=== PATIENT | female | born 1980 | race Hispanic/Latino ===

== ENCOUNTER 2017-11-19 17:13 | Emergency (ER) | payer SELFPAY ==
[2017-11-19 18:28] LABS: #Basophils 0.1 thou/uL (0.0-0.2); #Eosinphils 0.1 thou/uL (0.0-0.7); #Monocytes 0.7 thou/uL (0.11-0.59); #Neutrophils 6.2 thou/uL (1.40-6.50); %Basophils 0.8 % (0.0-1.0); %Eosinophils 0.9 % (0.0-10.0); %Lymphocytes 21.8 % (21.0-51.0); %Monocytes 7.2 % (0.0-10.0); %Neutrophils 69.2 % (42.0-75.0); Hemoglobin 13.6 g/dL (12.0-16.0); Mean Corpuscular HGB CONC 34.3 g/dL (32.0-36.0); Mean Corpuscular Hemoglobin 27.8 pg (27.0-31.0); Mean Corpuscular Volume 81.1 fl (81.0-99.0); Mean Platelet Volume 7.2 fL (7.4-10.4); Platelet Count 313 thou/uL (130-400); Red Blood Cell (RBC) Count 4.89 mill/uL (4.20-5.40)
[2017-11-19 18:50] LABS: ALT (SGPT) 10 U/L (8-55); AST (SGOT) 11 U/L (5-34); Albumin 4.7 g/dL (3.5-5.0); Alkaline Phosphatase 94 U/L (40-150); Anion Gap 18 mmol/L (10-20); BUN (Urea Nitrogen) 19 mg/dL (7.0-18.7); Bilirubin, Total 0.4 mg/dL (0.2-1.2); Calc. Creatinine Clearance 0 mL/min (70-130); Carbon Dioxide 20 mmol/L (22-29); Chloride 100 mmol/L (98-107); Estimated GFR-MDRD 71; Globulin 3.3 g/dL (2.4-3.5); Glucose 379 mg/dL (70-105); Potassium 3.7 mmol/L (3.5-5.1); Sodium 134 mmol/L (136-145)
== END 2017-11-19 20:57 | disposition home or self-care (01) ==
LOC: ERS 17:13
DX: E11.65 Type 2 diabetes mellitus with hyperglycemia (principal); E11.319 Type 2 diabetes mellitus with unspecified diabetic retinopathy without macular edema; Z79.84 Long term (current) use of oral hypoglycemic drugs; Z79.899 Other long term (current) drug therapy
CPT/HCPCS: 36415; 36416; 80053; 85025; 96360

== ENCOUNTER 2020-09-14 22:29 | Emergency (ER) | payer SELFPAY ==
[2020-09-15] MEDS ORDERED: Bupivacaine 0.25% 10 ML VIAL ONE (00:48)
[2020-09-15] MEDS ORDERED: Bacitracin 1 PK ONE (01:31)
[2020-09-15] MEDS ORDERED: Boostrix 0.5 ML (Tdap) VIAL ONE (02:03)
== END 2020-09-15 02:15 | disposition home or self-care (01) ==
LOC: ERS 22:29
DX: L03.011 Cellulitis of right finger (principal); E11.9 Type 2 diabetes mellitus without complications; Z79.4 Long term (current) use of insulin
CPT/HCPCS: 10060; 90471; 90715; S0020

== ENCOUNTER 2021-08-22 23:18 | Inpatient (IN) | payer SELFPAY ==
[2021-08-22 23:50] LABS: Bilirubin Negative (Negative); Blood, Urine 1+ (Negative); Clarity Clear (Clear); Glucose, Urine (Dipstick) Greater than 1000 mg/dL (Negative); Ketone, Urine Greater than 150 mg/dL (Negative); Leukocyte Negative Leu/uL (Negative); Nitrite Negative (Negative); Protein, Urine (Dipstick) 70 mg/dL (Neg-Trace); RBC/HPF 0-3 HPF (0-3); Specific Gravity, Urine 1.022 (1.002-1.036); Urobilinogen Normal mg/dL (Less than 2); WBC/HPF 0-3 HPF (0-3); pH, Urine 5.5 (5.0-9.0)
[2021-08-22 23:51] LABS: Bacteria/HPF 1+ HPF (None Seen); Pregnancy Test - Urine (BHCG) Negative (Negative); Pregu Control Background? CLEAR/WHITE (CLR/WHITE); Pregu Control Bar Appear? YES (CONTROL BAR); Specific Gravity 1.022 (1.002-1.036)
[2021-08-23 00:11] LABS: Hemoglobin 15.5 g/dL (12.0-16.0); Mean Corpuscular HGB CONC 31.1 g/dL (32.0-36.0); Mean Corpuscular Hemoglobin 26.8 pg (27.0-31.0); Mean Corpuscular Volume 86.3 fL (78.0-98.0); Mean Platelet Volume 8.5 fL (7.4-10.4); Platelet Count 383 thou/uL (130-400); RBC Distribution Width 12.8 % (11.5-14.5); Red Blood Cell (RBC) Count 5.78 mill/uL (4.20-5.40); White Blood Cell (WBC) Count 24.1 thou/uL (4.8-10.8)
[2021-08-23 00:32] LABS: Band 15 % (5-11); Lymphocytes 3 % (21-51); MDiff Complete? YES; Monocytes 3 % (0-10); Neutrophil 79 % (42-75); Platelet Morphology Comment Appears Adequate; RBC Morphology Normal
[2021-08-23 00:35] LABS: ALT (SGPT) 20 U/L (8-55); AST (SGOT) 19 U/L (5-34); Albumin 4.6 g/dL (3.5-5.0); Alkaline Phosphatase 140 U/L (40-110); BUN (Urea Nitrogen) 32 mg/dL (7.0-18.7); Bilirubin, Total 0.9 mg/dL (0.2-1.2); Calc. Creatinine Clearance 0 mL/min (70-130); Calcium 10.2 mg/dL (7.8-10.44); Chloride 94 mmol/L (98-107); Globulin 4.3 g/dL (2.4-3.5); Potassium 4.6 mmol/L (3.5-5.1); Protein, Total 8.9 g/dL (6.0-8.3); Sodium 138 mmol/L (136-145)
[2021-08-23 00:43] LABS: Analyzer IN Cardio ER; Base Excess -21.2 mEq/L (-2.0 to +3.0); Calcium, Ionized (venous) 1.08 mmol/L (1.16-1.32); Chloride (VBG) 97 mmol/L (98-106); Hemoglobin (Hb) 16.4 g/dL (11.7-15.5); Potassium (VBG) 4.51 mmol/L (3.70-5.30); Sodium 140.1 mmol/L (133-146)
[2021-08-23 00:45] LABS: Actual Bicarbonate (HCO3v) 7 mEq/L (22-28)
[2021-08-23 00:50] LABS: Carbon Dioxide Less than 8 mmol/L (22-29); Glucose 720 mg/dL (70-105)
[2021-08-23] MEDS ORDERED: cefTRIAXone\\ROCEPHIN 2 GM VIAL ONE (01:07)
[2021-08-23] MEDS ORDERED: Ondansetron PF 4 MG/2 ML Vial ONE ×2 (01:07→09:20)
[2021-08-23] MEDS ORDERED: INSULIN REGULAR IN 0.9 % NACL 100 UNIT/100 ML BAG ONE ×2 (01:08→01:09)
[2021-08-23] MEDS ORDERED: Pantoprazole 40 MG VIAL ONE ×2 (01:08→09:20)
[2021-08-23] MEDS ORDERED: Sodium Chloride 0.9% 1,000 ML IV PRN ×4 (01:21)
[2021-08-23] MEDS ORDERED: Dextrose 5 %-0.45 % NaCl 1,000 ML IV PRN (01:21)
[2021-08-23] MEDS ORDERED: D5 1/2 NS w/20 mEq KCL 1,000 ML IV PRN (01:21)
[2021-08-23] MEDS ORDERED: NS 0.9% w/ 20 MEQ KCL 1,000 ML IV PRN ×2 (01:21)
[2021-08-23] MEDS ORDERED: Electrolyte Replacement Protocol 1 EACH IVPB ONE (01:21)
[2021-08-23] MEDS ORDERED: HUMULIN R 100 UNITS in Sodium Chloride 0.9% 100 ML IVPB SCH (01:30)
[2021-08-23] MEDS ORDERED: Electrolyte Replacement Protocol FS PRN (01:45)
[2021-08-23 01:48] LABS: Acetaminophen Less than 6.0 mcg/mL (10.0-30.0); Alcohol Less than 10 mg/dL (Less than 10); Salicylate Less than 8.0 mg/dL (15.0-30.0)
[2021-08-23] MEDS ORDERED: Vancomycin 1 GM in Premix Bag 1 BAG IVPB SCH (02:00)
[2021-08-23 02:04] LABS: #Basophils 0.1 thou/uL (0.0-0.2); #Lymphocytes 1.3 thou/uL (1.20-3.40); #Monocytes 2.3 thou/uL (0.11-0.59); #Neutrophils 18.2 thou/uL (1.40-6.50); %Basophils 0.3 % (0.0-1.0); %Eosinophils 0.1 % (0.0-10.0); %Lymphocytes 5.8 % (21.0-51.0); %Monocytes 10.7 % (0.0-10.0); %Neutrophils 83.2 % (42.0-75.0); Hemoglobin 15.5 g/dL (12.0-16.0); Mean Corpuscular HGB CONC 33.1 g/dL (32.0-36.0); Mean Corpuscular Hemoglobin 28.5 pg (27.0-31.0); Mean Corpuscular Volume 86.1 fL (78.0-98.0); Mean Platelet Volume 8.6 fL (7.4-10.4); Platelet Count 310 thou/uL (130-400); RBC Distribution Width 12.8 % (11.5-14.5); Red Blood Cell (RBC) Count 5.45 mill/uL (4.20-5.40); White Blood Cell (WBC) Count 21.9 thou/uL (4.8-10.8)
[2021-08-23 02:25] LABS: Hemoglobin A1c Greater than 14.0 % (4.0-6.0)
[2021-08-23 02:28] LABS: BUN (Urea Nitrogen) 30 mg/dL (7.0-18.7); Calc. Creatinine Clearance 0 mL/min (70-130); Calcium 9.7 mg/dL (7.8-10.44); Chloride 102 mmol/L (98-107); Magnesium 2.3 mg/dL (1.6-2.6); Sodium 142 mmol/L (136-145)
[2021-08-23] MEDS ORDERED: Magnesium 2 GM/50 ML BAG (IN WATER) ONE (02:30)
[2021-08-23] MEDS ORDERED: Milk Of Magnesia 30 ML UDCUP ONE (02:31)
[2021-08-23] MEDS ORDERED: Lidocaine Viscous Sol 2% 15 ml UD Cup ONE (02:31)
[2021-08-23 02:44] LABS: Carbon Dioxide Less than 8 mmol/L (22-29); Glucose 661 mg/dL (70-105)
[2021-08-23] MEDS ORDERED: Acetaminophen 500 MG TAB ONE (03:44)
[2021-08-23 05:16] LABS: Anion Gap 30 mmol/L (10-20); BUN (Urea Nitrogen) 22 mg/dL (7.0-18.7); Calc. Creatinine Clearance 0 mL/min (70-130); Chloride 114 mmol/L (98-107); Glucose 406 mg/dL (70-105); Potassium 4.1 mmol/L (3.5-5.1); Sodium 148 mmol/L (136-145)
[2021-08-23 05:17] LABS: Magnesium 2.9 mg/dL (1.6-2.6)
[2021-08-23 05:46] LABS: Carbon Dioxide 8 mmol/L (22-29)
[2021-08-23] MEDS ORDERED: NS 0.9% w/ 20 MEQ KCL 1,000 ML ONE ×2 (05:48→08:04)
[2021-08-23 08:34] LABS: SARS-CoV-2 NAA Rapid Test Not Detected (NotDetected)
[2021-08-23] MEDS ORDERED: Cefepime 1 GM VIAL ONE (09:20)
[2021-08-23] MEDS: Cefepime 1 GM in Sodium Chloride 0.9% 100 ML IVPB SCH ×2 (09:29→21:23)
[2021-08-23] MEDS: Pantoprazole 40 MG VIAL IVP SCH ×2 (09:29→21:15)
[2021-08-23] MEDS: Ondansetron PF 4 MG/2 ML Vial IVP PRN ×2 (09:29→21:15)
[2021-08-23] MEDS ORDERED: D5 1/2 NS w/20 mEq KCL 1,000 ML ONE (09:49)
[2021-08-23 10:19] LABS: Anion Gap 15 mmol/L (10-20); BUN (Urea Nitrogen) 14 mg/dL (7.0-18.7); Calc. Creatinine Clearance 0 mL/min (70-130); Carbon Dioxide 15 mmol/L (22-29); Glucose 147 mg/dL (70-105); Potassium 4.2 mmol/L (3.5-5.1); Sodium 152 mmol/L (136-145)
[2021-08-23 10:24] LABS: Chloride 126 mmol/L (98-107)
[2021-08-23 12:15] LABS: Hemoglobin 12.8 g/dL (12.0-16.0)
[2021-08-23 12:47] LABS: Anion Gap 16 mmol/L (10-20); BUN (Urea Nitrogen) 13 mg/dL (7.0-18.7); Calc. Creatinine Clearance 0 mL/min (70-130); Carbon Dioxide 15 mmol/L (22-29); Chloride 120 mmol/L (98-107); Glucose 179 mg/dL (70-105); Sodium 147 mmol/L (136-145)
[2021-08-23] MEDS ORDERED: Dextrose 5% in Water 1,000 ML IV SCH (13:00)
[2021-08-23 16:36] VITALS: BMI 21.2
[2021-08-23 18:14] LABS: Anion Gap 18 mmol/L (10-20); BUN (Urea Nitrogen) 9 mg/dL (7.0-18.7); Calc. Creatinine Clearance 67 mL/min (70-130); Calcium 8.2 mg/dL (7.8-10.44); Carbon Dioxide 16 mmol/L (22-29); Chloride 116 mmol/L (98-107); Glucose 212 mg/dL (70-105); Potassium 4.1 mmol/L (3.5-5.1); Sodium 146 mmol/L (136-145)
[2021-08-23] MEDS: Dextrose 5% in Water 1,000 ML IV SCH (19:25)
[2021-08-23 21:01] LABS: Anion Gap 17 mmol/L (10-20); BUN (Urea Nitrogen) 6 mg/dL (7.0-18.7); Calc. Creatinine Clearance 76 mL/min (70-130); Calcium 8.3 mg/dL (7.8-10.44); Carbon Dioxide 17 mmol/L (22-29); Chloride 114 mmol/L (98-107); Glucose 216 mg/dL (70-105); Potassium 3.7 mmol/L (3.5-5.1); Sodium 144 mmol/L (136-145)
[2021-08-24] MEDS ORDERED: Lidocaine 2% Viscous Solution 20 ML, Aluminum & Magnesium Hydroxide 30 ML, Donnatal Eli... SSW SCH (01:15)
[2021-08-24 01:46] LABS: Anion Gap 15 mmol/L (10-20); BUN (Urea Nitrogen) 4 mg/dL (7.0-18.7); Calc. Creatinine Clearance 78 mL/min (70-130); Calcium 8.1 mg/dL (7.8-10.44); Carbon Dioxide 17 mmol/L (22-29); Chloride 110 mmol/L (98-107); Glucose 235 mg/dL (70-105); Potassium 3.2 mmol/L (3.5-5.1); Sodium 139 mmol/L (136-145)
[2021-08-24] MEDS: Potassium Chloride 20 MEQ in Premix Bag 1 BAG IVPB SCH ×2 (03:19→05:22)
[2021-08-24] MEDS: Dextrose 5% in Water 1,000 ML IV SCH (03:29)
[2021-08-24] MEDS: Ondansetron PF 4 MG/2 ML Vial IVP PRN (03:33)
[2021-08-24 03:53] LABS: #Monocytes 0.8 thou/uL (0.11-0.59); #Neutrophils 7.9 thou/uL (1.40-6.50); %Basophils 0.1 % (0.0-1.0); %Eosinophils 0.2 % (0.0-10.0); %Monocytes 8.2 % (0.0-10.0); %Neutrophils 81.5 % (42.0-75.0); Hemoglobin 11.8 g/dL (12.0-16.0); Mean Corpuscular HGB CONC 34.8 g/dL (32.0-36.0); Mean Corpuscular Hemoglobin 28.7 pg (27.0-31.0); Mean Corpuscular Volume 82.7 fL (78.0-98.0); Mean Platelet Volume 7.7 fL (7.4-10.4); Platelet Count 222 thou/uL (130-400); RBC Distribution Width 12.6 % (11.5-14.5); Red Blood Cell (RBC) Count 4.12 mill/uL (4.20-5.40); White Blood Cell (WBC) Count 9.7 thou/uL (4.8-10.8)
[2021-08-24 04:13] LABS: Anion Gap 14 mmol/L (10-20); BUN (Urea Nitrogen) Less than 4 mg/dL (7.0-18.7); Calc. Creatinine Clearance 84 mL/min (70-130); Calcium 8.6 mg/dL (7.8-10.44); Carbon Dioxide 19 mmol/L (22-29); Chloride 111 mmol/L (98-107); Glucose 203 mg/dL (70-105); Magnesium 1.9 mg/dL (1.6-2.6); Potassium 3.4 mmol/L (3.5-5.1); Sodium 141 mmol/L (136-145)
[2021-08-24] MEDS ORDERED: Vancomycin HCl 750 MG in Sodium Chloride 0.9% 250 ML 250 ML IVPB SCH (05:00)
[2021-08-24] MEDS ORDERED: Magnesium 2 GM/50 ML 2 GM in Premix Bag 1 BAG IVPB SCH (07:00)
[2021-08-24] MEDS: Pantoprazole 40 MG VIAL IVP SCH ×2 (08:01→20:54)
[2021-08-24] MEDS ORDERED: Promethazine HCl 12.5 MG in Sodium Chloride 0.9% 50 ML IVPB PRN (08:12)
[2021-08-24] MEDS: Metoclopramide HCl 10 MG/2 ML VIAL IVP SCH ×3 (08:24→21:45)
[2021-08-24] MEDS: guaiFENesin/DM ER PO SCH ×2 (08:25→20:54)
[2021-08-24] MEDS: Cefepime 1 GM in Sodium Chloride 0.9% 100 ML IVPB SCH ×2 (08:25→20:53)
[2021-08-24] MEDS: Dextrose 5 %-0.45 % NaCl 1,000 ML IV SCH ×2 (09:34→21:50)
[2021-08-24] MEDS: Sucralfate 1 GM TAB PO SCH ×3 (12:37→20:54)
[2021-08-24 12:56] LABS: Anion Gap 15 mmol/L (10-20); BUN (Urea Nitrogen) Less than 4 mg/dL (7.0-18.7); Calc. Creatinine Clearance 95 mL/min (70-130); Calcium 8.1 mg/dL (7.8-10.44); Carbon Dioxide 18 mmol/L (22-29); Chloride 108 mmol/L (98-107); Glucose 209 mg/dL (70-105); Potassium 3.5 mmol/L (3.5-5.1); Sodium 137 mmol/L (136-145)
[2021-08-24] MEDS ORDERED: Potassium Chloride 40 MEQ in Sodium Chloride 0.9% 250 ML 250 ML IVPB SCH (15:00)
[2021-08-24 18:29] LABS: Anion Gap 11 mmol/L (10-20); BUN (Urea Nitrogen) Less than 4 mg/dL (7.0-18.7); Calc. Creatinine Clearance 108 mL/min (70-130); Calcium 8.1 mg/dL (7.8-10.44); Carbon Dioxide 22 mmol/L (22-29); Chloride 111 mmol/L (98-107); Glucose 176 mg/dL (70-105); Potassium 3.9 mmol/L (3.5-5.1); Sodium 140 mmol/L (136-145)
[2021-08-25 04:24] LABS: Hemoglobin 11.1 g/dL (12.0-16.0); Mean Corpuscular HGB CONC 34.7 g/dL (32.0-36.0); Mean Corpuscular Hemoglobin 28.7 pg (27.0-31.0); Mean Corpuscular Volume 82.8 fL (78.0-98.0); Mean Platelet Volume 7.7 fL (7.4-10.4); Platelet Count 205 thou/uL (130-400); RBC Distribution Width 12.4 % (11.5-14.5); Red Blood Cell (RBC) Count 3.87 mill/uL (4.20-5.40); White Blood Cell (WBC) Count 9.8 thou/uL (4.8-10.8)
[2021-08-25 04:25] LABS: Band 15 % (5-11); Hypochromia SLIGHT = 6-15 cells (100X) (0-5/hpf); Lymphocytes 13 % (21-51); MDiff Complete? YES; Monocytes 8 % (0-10); Neutrophil 64 % (42-75); Platelet Morphology Comment Appears Adequate; Vancomycin, Trough Less than 1.1 ug/mL
[2021-08-25 04:29] LABS: Anion Gap 12 mmol/L (10-20); BUN (Urea Nitrogen) 4 mg/dL (7.0-18.7); Calc. Creatinine Clearance 120 mL/min (70-130); Calcium 8.1 mg/dL (7.8-10.44); Carbon Dioxide 21 mmol/L (22-29); Chloride 108 mmol/L (98-107); Glucose 197 mg/dL (70-105); Magnesium 1.9 mg/dL (1.6-2.6); Potassium 3.4 mmol/L (3.5-5.1); Sodium 138 mmol/L (136-145)
[2021-08-25] MEDS ORDERED: Vancomycin HCl 1.25 GM in Sodium Chloride 0.9% 250 ML 250 ML IVPB SCH (05:00)
[2021-08-25] MEDS: Metoclopramide HCl 10 MG/2 ML VIAL IVP SCH ×3 (06:11→20:57)
[2021-08-25] MEDS ORDERED: Magnesium 2 GM/50 ML 2 GM in Premix Bag 1 BAG IVPB SCH (06:15)
[2021-08-25] MEDS: Potassium Chloride 20 MEQ in Premix Bag 1 BAG IVPB SCH ×2 (07:06→12:09)
[2021-08-25] MEDS: Pantoprazole 40 MG VIAL IVP SCH ×2 (07:41→20:54)
[2021-08-25] MEDS: guaiFENesin/DM ER PO SCH ×2 (07:41→20:54)
[2021-08-25] MEDS: Sucralfate 1 GM TAB PO SCH ×4 (07:41→20:54)
[2021-08-25] MEDS: Cefepime 1 GM in Sodium Chloride 0.9% 100 ML IVPB SCH (07:41)
[2021-08-25] MEDS: Dextrose 5 %-0.45 % NaCl 1,000 ML IV SCH ×3 (12:09→19:00)
[2021-08-25] MEDS ORDERED: Vancomycin HCl 750 MG in Sodium Chloride 0.9% 250 ML 250 ML IVPB SCH (13:00)
[2021-08-25 14:27] LABS: Potassium 3.7 mmol/L (3.5-5.1)
[2021-08-25] MEDS ORDERED: Dextrose 50% Abboject 50 ML SYRINGE SLOW IVP PRN (18:19)
[2021-08-25] MEDS ORDERED: Dextrose 5% in Water 1,000 ML IV PRN (18:19)
[2021-08-25] MEDS ORDERED: Lantus 1000 UNITS/10 ML VIAL SC SCH (18:45)
[2021-08-26] MEDS: Metoclopramide HCl 10 MG/2 ML VIAL IVP SCH ×3 (06:12→20:10)
[2021-08-26] MEDS: HumaLOG 300 UNITS/3 ML VIAL SC PRN ×3 (06:13→16:20)
[2021-08-26] MEDS: Sucralfate 1 GM TAB PO SCH ×2 (07:40→13:54)
[2021-08-26] MEDS: guaiFENesin/DM ER PO SCH ×2 (07:41→20:11)
[2021-08-26] MEDS: Pantoprazole 40 MG VIAL IVP SCH ×2 (07:41→20:10)
[2021-08-26 08:09] LABS: Anion Gap 15 mmol/L (10-20); BUN (Urea Nitrogen) 5 mg/dL (7.0-18.7); Calc. Creatinine Clearance 110 mL/min (70-130); Calcium 8.4 mg/dL (7.8-10.44); Carbon Dioxide 20 mmol/L (22-29); Chloride 110 mmol/L (98-107); Glucose 182 mg/dL (70-105); Potassium 3.7 mmol/L (3.5-5.1); Sodium 141 mmol/L (136-145)
[2021-08-26] MEDS ORDERED: FLU VACC QS2021-22(6MOS UP)/PF 60 MCG/0.5 ML SYRINGE IM ONE (09:00)
[2021-08-26 09:19] LABS: #Lymphocytes 0.9 thou/uL (1.20-3.40); #Monocytes 0.9 thou/uL (0.11-0.59); #Neutrophils 7.8 thou/uL (1.40-6.50); %Basophils 0.1 % (0.0-1.0); %Eosinophils 0.3 % (0.0-10.0); %Lymphocytes 9.4 % (21.0-51.0); %Monocytes 9.2 % (0.0-10.0); Hemoglobin 10.7 g/dL (12.0-16.0); Mean Corpuscular Hemoglobin 27.5 pg (27.0-31.0); Mean Corpuscular Volume 83.1 fL (78.0-98.0); Mean Platelet Volume 7.7 fL (7.4-10.4); Platelet Count 230 thou/uL (130-400); RBC Distribution Width 12.2 % (11.5-14.5); Red Blood Cell (RBC) Count 3.91 mill/uL (4.20-5.40); White Blood Cell (WBC) Count 9.6 thou/uL (4.8-10.8)
[2021-08-26] MEDS: Lidocaine Viscous Sol 2% 15 ml UD Cup SSW PRN ×2 (09:33→16:19)
[2021-08-26] MEDS: Ciprofloxacin 500 MG TAB PO SCH ×2 (09:33→20:10)
[2021-08-26] MEDS: metroNIDAZOLE 500 MG TAB PO SCH ×3 (09:33→20:10)
[2021-08-26 09:39] LABS: Anion Gap 14 mmol/L (10-20); BUN (Urea Nitrogen) 5 mg/dL (7.0-18.7); Calc. Creatinine Clearance 120 mL/min (70-130); Calcium 8.3 mg/dL (7.8-10.44); Carbon Dioxide 20 mmol/L (22-29); Chloride 109 mmol/L (98-107); Glucose 167 mg/dL (70-105); Potassium 3.9 mmol/L (3.5-5.1); Sodium 139 mmol/L (136-145)
[2021-08-26] MEDS: Nystatin 500,000 UNITS/5 ML UDCUP SSW SCH ×3 (12:39→20:10)
[2021-08-26] MEDS: Sucralfate 1 GM/10 ML UDCUP PO SCH ×3 (12:42→20:10)
[2021-08-26] MEDS ORDERED: Acetaminophen 650 MG/20.3 ML UDCUP PO PRN (16:30)
[2021-08-26] MEDS: Lantus 1000 UNITS/10 ML VIAL SC SCH (20:11)
[2021-08-27] MEDS: Lidocaine Viscous Sol 2% 15 ml UD Cup SSW PRN ×3 (04:18→20:27)
[2021-08-27] MEDS: Metoclopramide HCl 10 MG/2 ML VIAL IVP SCH ×3 (04:18→20:28)
[2021-08-27 07:46] LABS: Anion Gap 19 mmol/L (10-20); BUN (Urea Nitrogen) 6 mg/dL (7.0-18.7); Calc. Creatinine Clearance 99 mL/min (70-130); Calcium 8.6 mg/dL (7.8-10.44); Carbon Dioxide 15 mmol/L (22-29); Chloride 108 mmol/L (98-107); Glucose 187 mg/dL (70-105); Potassium 3.9 mmol/L (3.5-5.1); Sodium 138 mmol/L (136-145)
[2021-08-27] MEDS: metroNIDAZOLE 500 MG TAB PO SCH ×3 (07:56→20:27)
[2021-08-27] MEDS: Sucralfate 1 GM/10 ML UDCUP PO SCH ×4 (07:56→20:27)
[2021-08-27] MEDS: Ciprofloxacin 500 MG TAB PO SCH ×2 (07:56→20:27)
[2021-08-27] MEDS: guaiFENesin/DM ER PO SCH ×2 (07:57→20:39)
[2021-08-27] MEDS: Pantoprazole 40 MG VIAL IVP SCH ×2 (07:57→20:27)
[2021-08-27] MEDS: Nystatin 500,000 UNITS/5 ML UDCUP SSW SCH ×4 (08:18→20:27)
[2021-08-27] MEDS: HumaLOG 300 UNITS/3 ML VIAL SC PRN ×2 (11:38→16:34)
[2021-08-27] MEDS: Lantus 1000 UNITS/10 ML VIAL SC SCH (20:32)
[2021-08-28] MEDS: Metoclopramide HCl 10 MG/2 ML VIAL IVP SCH ×2 (05:50→14:36)
[2021-08-28 07:47] LABS: Anion Gap 18 mmol/L (10-20); BUN (Urea Nitrogen) 6 mg/dL (7.0-18.7); Calc. Creatinine Clearance 108 mL/min (70-130); Calcium 8.8 mg/dL (7.8-10.44); Carbon Dioxide 18 mmol/L (22-29); Chloride 105 mmol/L (98-107); Glucose 205 mg/dL (70-105); Potassium 3.7 mmol/L (3.5-5.1); Sodium 137 mmol/L (136-145)
[2021-08-28] MEDS: metroNIDAZOLE 500 MG TAB PO SCH ×2 (08:06→14:45)
[2021-08-28] MEDS: guaiFENesin/DM ER PO SCH (08:06)
[2021-08-28] MEDS: Nystatin 500,000 UNITS/5 ML UDCUP SSW SCH ×2 (08:06→12:12)
[2021-08-28] MEDS: Ciprofloxacin 500 MG TAB PO SCH (08:06)
[2021-08-28] MEDS: Pantoprazole 40 MG VIAL IVP SCH (08:06)
[2021-08-28] MEDS: Sucralfate 1 GM/10 ML UDCUP PO SCH ×2 (08:06→12:12)
[2021-08-28] MEDS: HumaLOG 300 UNITS/3 ML VIAL SC PRN (12:13)
[2021-08-28 16:24] VITALS: BP 106/75; TEMP 97.5
== END 2021-08-28 16:32 | disposition home or self-care (01) | DRG 637 ==
LOC: ERS 23:18 → ERHOLD 08-23 01:35 → IMCU/EMU 08-23 14:54 → T4-A 08-25 23:31
PROVIDERS: ADMIT Internal Medicine; ATTEND Internal Medicine
DX: E11.10 Type 2 diabetes mellitus with ketoacidosis without coma (principal); G93.41 Metabolic encephalopathy; N17.9 Acute kidney failure, unspecified; K92.0 Hematemesis; I10 Essential (primary) hypertension; D72.829 Elevated white blood cell count, unspecified; Z79.4 Long term (current) use of insulin; Z79.84 Long term (current) use of oral hypoglycemic drugs; Z98.42 Cataract extraction status, left eye; Z98.41 Cataract extraction status, right eye; Z91.14 Patient's other noncompliance with medication regimen
CPT/HCPCS: 36415; 36416; 70450; 71045; 74176; 80048; 80053; 80202; 80307; 81003; 81015; 81025; 82010; 82805; 83036; 83605; 83690; 83735; 84484; 85025; 87040; 93005; 96365; 96366; 96367; 96368; 96375; C9113; J0692; J0696; J1815; J2405; J2765; J3370; J3475; J3480; J3490; J7042; J7050; J7070; U0002

== ENCOUNTER → 2021-11-19 15:40 | Emergency (ER) | payer SELFPAY ==
[2021-11-19 12:16] LABS: Bacteria/HPF 2+ HPF (None Seen); Bilirubin Negative (Negative); Blood, Urine 3+ (Negative); Clarity Clear (Clear); Glucose, Urine (Dipstick) Greater than 1000 mg/dL (Negative); Ketone, Urine 80 mg/dL (Negative); Leukocyte Negative Leu/uL (Negative); Nitrite Negative (Negative); Protein, Urine (Dipstick) 50 mg/dL (Neg-Trace); RBC/HPF 0-3 HPF (0-3); Specific Gravity, Urine 1.045 (1.002-1.036); Urobilinogen Normal mg/dL (Less than 2)
[2021-11-19 12:17] LABS: Pregnancy Test - Urine (BHCG) Negative (Negative); Pregu Control Background? CLEAR/WHITE (CLR/WHITE); Pregu Control Bar Appear? YES (CONTROL BAR); Specific Gravity 1.045 (1.002-1.036)
[2021-11-19 12:48] LABS: #Lymphocytes 1.5 thou/uL (1.20-3.40); #Monocytes 0.6 thou/uL (0.11-0.59); #Neutrophils 4.8 thou/uL (1.40-6.50); %Basophils 0.1 % (0.0-1.0); %Eosinophils 0.3 % (0.0-10.0); %Lymphocytes 21.1 % (21.0-51.0); %Neutrophils 70.5 % (42.0-75.0); Hemoglobin 13.3 g/dL (12.0-16.0); Mean Corpuscular HGB CONC 33.4 g/dL (32.0-36.0); Mean Corpuscular Hemoglobin 27.3 pg (27.0-31.0); Mean Corpuscular Volume 81.8 fL (78.0-98.0); Mean Platelet Volume 7.8 fL (7.4-10.4); Platelet Count 300 thou/uL (130-400); RBC Distribution Width 12.1 % (11.5-14.5); Red Blood Cell (RBC) Count 4.86 mill/uL (4.20-5.40); White Blood Cell (WBC) Count 6.9 thou/uL (4.8-10.8)
[2021-11-19 13:05] LABS: ALT (SGPT) 7 U/L (8-55); AST (SGOT) 10 U/L (5-34); Alkaline Phosphatase 79 U/L (40-110); Anion Gap 14 mmol/L (10-20); BUN (Urea Nitrogen) 7 mg/dL (7.0-18.7); Calc. Creatinine Clearance 0 mL/min (70-130); Calcium 9.4 mg/dL (7.8-10.44); Carbon Dioxide 24 mmol/L (22-29); Chloride 101 mmol/L (98-107); Globulin 3.3 g/dL (2.4-3.5); Glucose 329 mg/dL (70-105); Potassium 4.4 mmol/L (3.5-5.1); Protein, Total 7.3 g/dL (6.0-8.3); Sodium 135 mmol/L (136-145)
[~2021-11-19 15:40] MED LIST: Azithromycin 250 MG TAB ONE; Ketorolac Tromethamine 30 MG/ML VIAL ONE; Lidocaine 1% PF 5 ML VIAL ONE; cefTRIAXone\\ROCEPHIN 1 GM VIAL ONE
== END | disposition home or self-care (01) ==
LOC: ERS 11:48
DX: N12 Tubulo-interstitial nephritis, not specified as acute or chronic (principal); N73.9 Female pelvic inflammatory disease, unspecified; M79.604 Pain in right leg; E11.9 Type 2 diabetes mellitus without complications; Z79.84 Long term (current) use of oral hypoglycemic drugs
CPT/HCPCS: 36415; 76856; 80053; 81003; 81015; 81025; 85025; 87491; 87591; 96372; J0696; J1885

== ENCOUNTER 2023-10-29 13:37 | Inpatient (IN) | payer SELFPAY ==
[2023-10-29] MEDS ORDERED: Ondansetron PF 4 MG/2 ML Vial ONE ×4 (14:00→23:17)
[2023-10-29] MEDS ORDERED: Pantoprazole 40 MG VIAL ONE ×2 (14:07→23:22)
[2023-10-29] MEDS ORDERED: Morphine 4 MG/ML VIAL ONE (14:07)
[2023-10-29 14:08] LABS: #Basophils 0.1 thou/uL (0.0-0.2); #Monocytes 1.4 thou/uL (0.11-0.59); #Neutrophils 15.4 thou/uL (1.40-6.50); %Basophils 0.3 % (0.0-1.0); %Lymphocytes 7.7 % (21.0-51.0); %Monocytes 7.7 % (0.0-10.0); %Neutrophils 83.7 % (42.0-75.0); Hematocrit 39.9 % (36.0-47.0); Hemoglobin 12.9 g/dL (12.0-16.0); Mean Corpuscular HGB CONC 32.3 g/dL (32.0-36.0); Mean Corpuscular Hemoglobin 29.3 pg (27.0-31.0); Mean Corpuscular Volume 90.7 fl (78.0-98.0); Mean Platelet Volume 9.8 fL (7.4-10.4); Platelet Count 431 10x3/uL (130-400); RBC Distribution Width 11.9 % (11.5-14.5); White Blood Cell (WBC) Count 18.4 10x3/uL (4.8-10.8)
[2023-10-29 14:09] LABS: Base Excess -22.6 mEq/L (-2.0 to +3.0); Calcium, Ionized (venous) 1.28 mmol/L (1.16-1.32); Chloride (VBG) 105 mmol/L (98-106); Hematocrit-VBG 41 % (36.0-47.0); Sodium 150 mmol/L (133-146)
[2023-10-29 14:12] LABS: Actual Bicarbonate (HCO3v) 7.1 mEq/L (22-28); pH (venous) 7.022 (7.32-7.43)
[2023-10-29 14:16] LABS: BHCG - Serum Negative (NEGATIVE); Pregs Control Background? CLEAR/WHITE (CLR/WHITE); Pregs Control Bar Appear? YES (CONTROL BAR)
[2023-10-29 14:24] LABS: ALT (SGPT) 16 U/L (8-55); AST (SGOT) 22 U/L (5-34); Albumin 4.7 g/dL (3.5-5.0); Alkaline Phosphatase 167 U/L (40-110); BUN (Urea Nitrogen) 17 mg/dL (7.0-18.7); Bilirubin, Total 0.6 mg/dL (0.2-1.2); Calc. Creatinine Clearance 0 mL/min (70-130); Calcium 9.6 mg/dL (7.8-10.44); Chloride 106 mmol/L (98-107); Estimated GFR 50; Globulin 3.3 g/dL (2.4-3.5); Lipase 19 U/L (8-78); Magnesium 2.2 mg/dL (1.6-2.6); Potassium 4.8 mmol/L (3.5-5.1); Sodium 144 mmol/L (136-145)
[2023-10-29 14:26] LABS: Carbon Dioxide Less than 8 mmol/L (22-29); Glucose 555 mg/dL (70-105)
[2023-10-29 14:28] LABS: Troponin I Less than 0.010 ng/mL (< 0.028)
[2023-10-29] MEDS ORDERED: INSULIN REGULAR IN 0.9 % NACL 100 UNITS/100 ML BAG ONE (14:50)
[2023-10-29 15:14] LABS: Phosphorus 5.7 mg/dL (2.3-4.7)
[2023-10-29 15:14] LABS: SARS-CoV-2 NAA Rapid Test Not Detected (NotDetected)
[2023-10-29] MEDS ORDERED: Azithromycin 500 MG VIAL ONE (15:27)
[2023-10-29] MEDS ORDERED: cefTRIAXone (ROCEPHIN) 2 GM VIAL ONE (15:27)
[2023-10-29] MEDS ORDERED: Sodium Chloride 0.9% 200 ML ONE (15:28)
[2023-10-29] MEDS ORDERED: Dextrose 50% Abboject 50 ML SYRINGE SLOW IVP PRN (16:30)
[2023-10-29] MEDS ORDERED: Dextrose 5 %-0.45 % NaCl 1,000 ML IV PRN (16:30)
[2023-10-29] MEDS ORDERED: NS 0.9% w/ 20 MEQ KCL 1,000 ML IV PRN ×2 (16:30)
[2023-10-29] MEDS ORDERED: Acetaminophen 325 MG TAB PO PRN (16:30)
[2023-10-29] MEDS ORDERED: Sodium Chloride 0.9% 1,000 ML IV PRN ×4 (16:30)
[2023-10-29] MEDS ORDERED: Electrolyte Replacement Protocol 1 EACH IVPB SCH (16:30)
[2023-10-29] MEDS ORDERED: HUMULIN R 100 UNITS in Sodium Chloride 0.9% 100 ML IVPB SCH (16:30)
[2023-10-29 18:54] LABS: BUN (Urea Nitrogen) 12 mg/dL (7.0-18.7); Calc. Creatinine Clearance 0 mL/min (70-130); Calcium 8.6 mg/dL (7.8-10.44); Chloride 116 mmol/L (98-107); Estimated GFR 65; Glucose 294 mg/dL (70-105); Potassium 4.3 mmol/L (3.5-5.1); Sodium 146 mmol/L (136-145)
[2023-10-29 18:58] LABS: Carbon Dioxide Less than 8 mmol/L (22-29)
[2023-10-29] MEDS ORDERED: HYDROcodone/Acetaminophen 5/325 mg Tablet ONE (19:34)
[2023-10-29] MEDS: HYDROcodone/Acetaminophen 5/325 mg Tablet PO PRN (19:39)
[2023-10-29 19:41] LABS: Bacteria/HPF None Seen HPF (None Seen); Bilirubin Negative (Negative); Blood, Urine Trace (Negative); CAUTI Indications for Culture Alt mental st,lethar; Clarity Clear (Clear); Glucose, Urine (Dipstick) Greater than 1000 mg/dL (Negative); Ketone, Urine Greater than 150 mg/dL (Negative); Leukocyte Negative Leu/uL (Negative); Nitrite Negative (Negative); Protein, Urine (Dipstick) 30 mg/dL (Neg-Trace); RBC/HPF 0-3 HPF (0-3); Squamous Epithelial 0-3 HPF (0-3); Urobilinogen Normal mg/dL (Less than 2); WBC/HPF 0-3 HPF (0-3); Yeast-Budding Rare HPF (None Seen); pH, Urine 5.5 (5.0-9.0)
[2023-10-29 19:48] LABS: Urine Culture Reflex No No
[2023-10-29] MEDS ORDERED: D5 1/2 NS w/20 mEq KCL 1,000 ML ONE (20:27)
[2023-10-29] MEDS ORDERED: Dextrose 10% in Water 250 ML ONE (20:31)
[2023-10-29] MEDS: D5 1/2 NS w/20 mEq KCL 1,000 ML IV PRN (20:45)
[2023-10-29 21:57] LABS: Anion Gap 21 mmol/L (10-20); BUN (Urea Nitrogen) 9 mg/dL (7.0-18.7); Calc. Creatinine Clearance 0 mL/min (70-130); Calcium 8.3 mg/dL (7.8-10.44); Carbon Dioxide 10 mmol/L (22-29); Chloride 115 mmol/L (98-107); Estimated GFR 65; Glucose 374 mg/dL (70-105); Sodium 142 mmol/L (136-145)
[2023-10-29] MEDS: Ondansetron PF 4 MG/2 ML Vial IVP PRN (23:21)
[2023-10-29] MEDS: Pantoprazole 40 MG VIAL IVP SCH (23:21)
[2023-10-30] MEDS ORDERED: D5 1/2 NS w/20 mEq KCL 0 ML ONE (00:36)
[2023-10-30] MEDS ORDERED: D5 1/2 NS w/20 mEq KCL 1,000 ML ONE ×3 (00:38→09:06)
[2023-10-30] MEDS: D5 1/2 NS w/20 mEq KCL 1,000 ML IV PRN ×2 (01:05→05:03)
[2023-10-30 01:49] LABS: Anion Gap 13 mmol/L (10-20); BUN (Urea Nitrogen) 6 mg/dL (7.0-18.7); Calc. Creatinine Clearance 0 mL/min (70-130); Calcium 8.4 mg/dL (7.8-10.44); Carbon Dioxide 16 mmol/L (22-29); Chloride 114 mmol/L (98-107); Estimated GFR 68; Glucose 282 mg/dL (70-105); Potassium 3.3 mmol/L (3.5-5.1); Sodium 140 mmol/L (136-145)
[2023-10-30 04:00] LABS: Hemoglobin 10.4 g/dL (12.0-16.0); Manual Diff?? YES; Mean Corpuscular Hemoglobin 29.5 pg (27.0-31.0); Mean Platelet Volume 9.4 fL (7.4-10.4); RBC Distribution Width 12.1 % (11.5-14.5); Red Blood Cell (RBC) Count 3.52 mill/uL (4.20-5.40); White Blood Cell (WBC) Count 11.3 10x3/uL (4.8-10.8)
[2023-10-30 04:05] LABS: Delete Auto Diff?? YES; Hematocrit 30.6 % (36.0-47.0); Mean Corpuscular Volume 86.9 fl (78.0-98.0); Platelet Count 277 10x3/uL (130-400)
[2023-10-30 04:20] LABS: Anion Gap 13 mmol/L (10-20); BUN (Urea Nitrogen) 5 mg/dL (7.0-18.7); Calc. Creatinine Clearance 0 mL/min (70-130); Calcium 8.2 mg/dL (7.8-10.44); Carbon Dioxide 16 mmol/L (22-29); Chloride 115 mmol/L (98-107); Estimated GFR 86; Glucose 236 mg/dL (70-105); Sodium 141 mmol/L (136-145)
[2023-10-30 04:32] LABS: Band 33 % (5-11); CellaVision Operator ID LAB.CLH1; Hypochromia SLIGHT = 6-15 cells HPF (0-5); Lymphocytes 6 % (21-51); Monocytes 8 % (0-10); Neutrophil 53 % (42-75); Platelet Adequacy Comment Platelets Normal; Polychromasia SLIGHT = 2-3 cells HPF (0-2); Reactive Lymphocytes 1 % (0-10); Total Cell Count 101
[2023-10-30] MEDS ORDERED: INSULIN REGULAR IN 0.9 % NACL 100 UNITS/100 ML BAG ONE (04:36)
[2023-10-30] MEDS: Ondansetron PF 4 MG/2 ML Vial IVP PRN ×3 (04:58→21:55)
[2023-10-30] MEDS ORDERED: Ondansetron PF 4 MG/2 ML Vial ONE (04:59)
[2023-10-30 08:39] LABS: Anion Gap 10 mmol/L (10-20); BUN (Urea Nitrogen) 4 mg/dL (7.0-18.7); Calc. Creatinine Clearance 0 mL/min (70-130); Calcium 8.1 mg/dL (7.8-10.44); Carbon Dioxide 19 mmol/L (22-29); Chloride 113 mmol/L (98-107); Estimated GFR 100; Glucose 181 mg/dL (70-105); Potassium 2.8 mmol/L (3.5-5.1); Sodium 139 mmol/L (136-145)
[2023-10-30] MEDS ORDERED: NS 0.9% w/ 20 MEQ KCL 1,000 ML ONE (08:48)
[2023-10-30] MEDS: Pantoprazole 40 MG VIAL IVP SCH ×2 (09:48→21:41)
[2023-10-30] MEDS ORDERED: Dextrose 5% in Water 1,000 ML IV PRN (09:58)
[2023-10-30] MEDS ORDERED: Glucagon 1 MG/ML KIT IM PRN (09:58)
[2023-10-30] MEDS ORDERED: Dextrose 50% Abboject 50 ML SYRINGE SLOW IVP PRN (09:58)
[2023-10-30] MEDS ORDERED: Pantoprazole 40 MG VIAL ONE (10:47)
[2023-10-30 13:27] LABS: Hemoglobin A1c Greater than 14.0 % (4.0-6.0)
[2023-10-30] MEDS: NS 0.9% w/ 20 MEQ KCL 1,000 ML/1,000 ML BAG IV SCH ×2 (13:30→23:37)
[2023-10-30] MEDS: cefTRIAXone\\ROCEPHIN 1 GM in Sodium Chloride 0.9% 100 ML IVPB SCH (13:44)
[2023-10-30] MEDS: HYDROcodone/Acetaminophen 5/325 mg Tablet PO PRN (13:48)
[2023-10-30] MEDS: Potassium Chloride 20 MEQ in Premix 1 BAG IVPB SCH (16:08)
[2023-10-30 16:44] LABS: Potassium 3.3 mmol/L (3.5-5.1)
[2023-10-30] MEDS: HumaLOG 300 UNITS/3 ML VIAL SC PRN (17:25)
[2023-10-30] MEDS: HYDROcodone/Acetaminophen 7.5/325 mg Tablet PO PRN (21:41)
[2023-10-31] MEDS: HumaLOG 300 UNITS/3 ML VIAL SC PRN ×4 (03:06→16:21)
[2023-10-31] MEDS: Ondansetron PF 4 MG/2 ML Vial IVP PRN ×2 (04:31→20:42)
[2023-10-31] MEDS: HYDROcodone/Acetaminophen 7.5/325 mg Tablet PO PRN ×2 (07:06→20:35)
[2023-10-31] MEDS: NS 0.9% w/ 20 MEQ KCL 1,000 ML/1,000 ML BAG IV SCH ×2 (09:58→17:16)
[2023-10-31] MEDS: Pantoprazole 40 MG VIAL IVP SCH ×2 (09:58→20:37)
[2023-10-31 10:33] LABS: Hematocrit 30.1 % (36.0-47.0); Hemoglobin 9.7 g/dL (12.0-16.0); Manual Diff?? YES; Mean Corpuscular HGB CONC 32.2 g/dL (32.0-36.0); Mean Corpuscular Volume 89.9 fl (78.0-98.0); Mean Platelet Volume 9.8 fL (7.4-10.4); Platelet Count 240 10x3/uL (130-400); RBC Distribution Width 12.7 % (11.5-14.5); Red Blood Cell (RBC) Count 3.35 mill/uL (4.20-5.40); White Blood Cell (WBC) Count 11.7 10x3/uL (4.8-10.8)
[2023-10-31 10:34] LABS: Delete Auto Diff?? YES
[2023-10-31 10:56] LABS: Lymphocytes 12 % (21-51); Monocytes 7 % (0-10); Myelocyte 1 % (0-0); Neutrophil 51 % (42-75)
[2023-10-31 10:57] LABS: Band 28 % (5-11); Metamyelocyte 1 % (0-0); Platelet Adequacy Comment Platelets Normal; Polychromasia SLIGHT = 2-3 cells (100X) (0-2/hpf)
[2023-10-31 10:58] LABS: Anion Gap 14 mmol/L (10-20); BUN (Urea Nitrogen) Less than 4 mg/dL (7.0-18.7); Calc. Creatinine Clearance 97 mL/min (70-130); Calcium 8.1 mg/dL (7.8-10.44); Carbon Dioxide 17 mmol/L (22-29); Chloride 110 mmol/L (98-107); Estimated GFR 116; Glucose 177 mg/dL (70-105); Magnesium 1.3 mg/dL (1.6-2.6); Potassium 3.4 mmol/L (3.5-5.1); Sodium 138 mmol/L (136-145)
[2023-10-31 11:02] LABS: Anion Gap 15 mmol/L (10-20); BUN (Urea Nitrogen) Less than 4 mg/dL (7.0-18.7); Calc. Creatinine Clearance 92 mL/min (70-130); Carbon Dioxide 17 mmol/L (22-29); Chloride 111 mmol/L (98-107); Estimated GFR 114; Glucose 174 mg/dL (70-105); Magnesium 1.3 mg/dL (1.6-2.6); Phosphorus 2.3 mg/dL (2.3-4.7); Potassium 3.4 mmol/L (3.5-5.1); Sodium 140 mmol/L (136-145)
[2023-10-31] MEDS: cefTRIAXone\\ROCEPHIN 1 GM in Sodium Chloride 0.9% 100 ML IVPB SCH (13:21)
[2023-10-31] MEDS: HYDROcodone/Acetaminophen 5/325 mg Tablet PO PRN (13:21)
[2023-10-31] MEDS ORDERED: Potassium Chloride 20 MEQ TAB PO SCH (14:00)
[2023-10-31] MEDS ORDERED: Magnesium Sulfate In Water 4 GM in Premix 1 BAG IVPB SCH ×2 (14:00→14:15)
[2023-10-31 21:01] LABS: Potassium 3.8 mmol/L (3.5-5.1)
[2023-11-01] MEDS: HYDROcodone/Acetaminophen 5/325 mg Tablet PO PRN ×2 (00:33→06:55)
[2023-11-01 05:53] LABS: Hematocrit 32.1 % (36.0-47.0); Hemoglobin 9.9 g/dL (12.0-16.0); Manual Diff?? YES; Mean Corpuscular HGB CONC 30.8 g/dL (32.0-36.0); Mean Corpuscular Hemoglobin 28.5 pg (27.0-31.0); Mean Corpuscular Volume 92.5 fl (78.0-98.0); Mean Platelet Volume 9.8 fL (7.4-10.4); Platelet Count 223 10x3/uL (130-400); RBC Distribution Width 12.6 % (11.5-14.5); Red Blood Cell (RBC) Count 3.47 mill/uL (4.20-5.40); White Blood Cell (WBC) Count 10.6 10x3/uL (4.8-10.8)
[2023-11-01 06:01] LABS: Delete Auto Diff?? YES
[2023-11-01] MEDS: HumaLOG 300 UNITS/3 ML VIAL SC PRN (06:09)
[2023-11-01] MEDS: Ondansetron PF 4 MG/2 ML Vial IVP PRN ×2 (06:15→14:27)
[2023-11-01 06:18] LABS: Anion Gap 19 mmol/L (10-20); BUN (Urea Nitrogen) 4 mg/dL (7.0-18.7); Calc. Creatinine Clearance 82 mL/min (70-130); Carbon Dioxide 13 mmol/L (22-29); Chloride 108 mmol/L (98-107); Estimated GFR 111; Glucose 364 mg/dL (70-105); Potassium 4.1 mmol/L (3.5-5.1); Sodium 136 mmol/L (136-145)
[2023-11-01 06:53] LABS: Band 32 % (5-11); Hypochromia SLIGHT = 6-15 cells (100X) (0-5/hpf); Lymphocytes 2 % (21-51); Monocytes 3 % (0-10); Neutrophil 63 % (42-75); Platelet Adequacy Comment Platelets Normal
[2023-11-01] MEDS: Pantoprazole 40 MG VIAL IVP SCH ×2 (08:22→20:20)
[2023-11-01] MEDS: HumaLOG 300 UNITS/3 ML VIAL SC SCH ×3 (08:22→17:25)
[2023-11-01] MEDS: cefTRIAXone\\ROCEPHIN 1 GM in Sodium Chloride 0.9% 100 ML IVPB SCH (13:28)
[2023-11-01] MEDS: HYDROcodone/Acetaminophen 7.5/325 mg Tablet PO PRN (14:27)
[2023-11-01] MEDS: Sodium Chloride 0.9% 1,000 ML IV SCH ×2 (15:26→22:12)
[2023-11-02] MEDS: Ondansetron PF 4 MG/2 ML Vial IVP PRN ×2 (01:30→12:43)
[2023-11-02] MEDS: HYDROcodone/Acetaminophen 5/325 mg Tablet PO PRN ×2 (01:30→12:58)
[2023-11-02] MEDS: Sodium Chloride 0.9% 1,000 ML IV SCH ×2 (04:49→10:56)
[2023-11-02] MEDS: HumaLOG 300 UNITS/3 ML VIAL SC PRN ×2 (05:52→09:21)
[2023-11-02 05:53] LABS: #Monocytes 0.8 thou/uL (0.11-0.59); %Basophils 0.2 % (0.0-1.0); %Eosinophils 0.1 % (0.0-10.0); %Lymphocytes 5.6 % (21.0-51.0); %Monocytes 7.2 % (0.0-10.0); %Neutrophils 86.3 % (42.0-75.0); Hematocrit 35.8 % (36.0-47.0); Hemoglobin 10.7 g/dL (12.0-16.0); Mean Corpuscular HGB CONC 29.9 g/dL (32.0-36.0); Mean Corpuscular Hemoglobin 28.7 pg (27.0-31.0); Mean Platelet Volume 9.5 fL (7.4-10.4); Platelet Count 232 10x3/uL (130-400); RBC Distribution Width 12.3 % (11.5-14.5); Red Blood Cell (RBC) Count 3.73 mill/uL (4.20-5.40); White Blood Cell (WBC) Count 10.4 10x3/uL (4.8-10.8)
[2023-11-02] MEDS: HYDROcodone/Acetaminophen 7.5/325 mg Tablet PO PRN (05:58)
[2023-11-02 06:12] LABS: Anion Gap 23 mmol/L (10-20); BUN (Urea Nitrogen) 5 mg/dL (7.0-18.7); Calc. Creatinine Clearance 78 mL/min (70-130); Calcium 8.2 mg/dL (7.8-10.44); Chloride 109 mmol/L (98-107); Estimated GFR 108; Glucose 328 mg/dL (70-105); Potassium 3.8 mmol/L (3.5-5.1); Sodium 136 mmol/L (136-145)
[2023-11-02 06:14] LABS: Carbon Dioxide 8 mmol/L (22-29)
[2023-11-02] MEDS ORDERED: Insulin Glargine 30 UNITS/0.3 ML VIAL SC SCH (06:45)
[2023-11-02] MEDS ORDERED: Dextrose 50% Abboject 50 ML SYRINGE SLOW IVP PRN (07:49)
[2023-11-02] MEDS ORDERED: Dextrose 5 %-0.45 % NaCl 1,000 ML IV PRN (07:49)
[2023-11-02] MEDS ORDERED: D5 1/2 NS w/20 mEq KCL 1,000 ML IV PRN (07:49)
[2023-11-02] MEDS ORDERED: NS 0.9% w/ 20 MEQ KCL 1,000 ML IV PRN ×2 (07:49)
[2023-11-02] MEDS ORDERED: Electrolyte Replacement Protocol 1 EACH IVPB SCH (07:49)
[2023-11-02] MEDS ORDERED: Sodium Chloride 0.9% 1,000 ML IV PRN ×4 (07:49)
[2023-11-02] MEDS ORDERED: HUMULIN R 100 UNITS in Sodium Chloride 0.9% 100 ML IVPB SCH ×3 (08:00→17:15)
[2023-11-02] MEDS ORDERED: Electrolyte Replacement Protocol FS PRN (08:45)
[2023-11-02 09:11] LABS: Anion Gap 18 mmol/L (10-20); BUN (Urea Nitrogen) Less than 4 mg/dL (7.0-18.7); Calc. Creatinine Clearance 84 mL/min (70-130); Calcium 7.8 mg/dL (7.8-10.44); Carbon Dioxide 12 mmol/L (22-29); Chloride 112 mmol/L (98-107); Estimated GFR 112; Glucose 208 mg/dL (70-105); Potassium 3.6 mmol/L (3.5-5.1); Sodium 138 mmol/L (136-145)
[2023-11-02] MEDS: Pantoprazole 40 MG VIAL IVP SCH ×2 (09:32→21:06)
[2023-11-02] MEDS ORDERED: Lactated Ringer's 1,000 ML IV SCH (10:00)
[2023-11-02] MEDS: Sodium Bicarbonate Tab 325 MG TAB PO SCH ×3 (10:20→21:07)
[2023-11-02 10:22] LABS: #Monocytes 0.6 thou/uL (0.11-0.59); #Neutrophils 6.9 thou/uL (1.40-6.50); %Basophils 0.3 % (0.0-1.0); %Eosinophils 0.1 % (0.0-10.0); %Lymphocytes 6.3 % (21.0-51.0); %Monocytes 6.9 % (0.0-10.0); %Neutrophils 85.8 % (42.0-75.0); Hematocrit 32.3 % (36.0-47.0); Mean Corpuscular Hemoglobin 28.3 pg (27.0-31.0); Mean Platelet Volume 9.1 fL (7.4-10.4); Platelet Count 240 10x3/uL (130-400); RBC Distribution Width 12.2 % (11.5-14.5); Red Blood Cell (RBC) Count 3.53 mill/uL (4.20-5.40)
[2023-11-02 10:24] LABS: Mean Corpuscular Volume 91.5 fl (78.0-98.0)
[2023-11-02 10:44] LABS: Lactic Acid 0.7 mmol/L (0.5-2.2)
[2023-11-02 10:49] LABS: Chloride 113 mmol/L (98-107); Potassium 3.3 mmol/L (3.5-5.1); Sodium 137 mmol/L (136-145)
[2023-11-02 10:50] LABS: ALT (SGPT) 8 U/L (8-55); AST (SGOT) 7 U/L (5-34); Albumin 2.7 g/dL (3.5-5.0); Alkaline Phosphatase 126 U/L (40-110); Anion Gap 15 mmol/L (10-20); BUN (Urea Nitrogen) 4 mg/dL (7.0-18.7); Bilirubin, Total 0.5 mg/dL (0.2-1.2); Calc. Creatinine Clearance 85 mL/min (70-130); Calcium 7.6 mg/dL (7.8-10.44); Calcium 7.9 mg/dL (7.8-10.44); Carbon Dioxide 13 mmol/L (22-29); Chloride 113 mmol/L (98-107); Estimated GFR 112; Globulin 2.9 g/dL (2.4-3.5); Glucose 164 mg/dL (70-105); Lipase 6 U/L (8-78); Potassium 3.3 mmol/L (3.5-5.1); Protein, Total 5.6 g/dL (6.0-8.3); Sodium 138 mmol/L (136-145)
[2023-11-02 10:51] LABS: Glucose 167 mg/dL (70-105)
[2023-11-02 10:52] LABS: Anion Gap 15 mmol/L (10-20); Carbon Dioxide 12 mmol/L (22-29)
[2023-11-02 10:54] LABS: Calc. Creatinine Clearance 91 mL/min (70-130); Estimated GFR 114
[2023-11-02 10:55] LABS: BUN (Urea Nitrogen) 4 mg/dL (7.0-18.7)
[2023-11-02] MEDS ORDERED: FLU VACC QS2023-24(6MOS UP)/PF 60 MCG/0.5 ML SYRINGE IM ONE (11:45)
[2023-11-02] MEDS ORDERED: Potassium Chloride 20 MEQ TAB PO SCH (12:00)
[2023-11-02] MEDS ORDERED: Dextrose 5%-Lactated Ringers 1,000 ML IV SCH (14:00)
[2023-11-02 17:05] LABS: Anion Gap 18 mmol/L (10-20); BUN (Urea Nitrogen) Less than 4 mg/dL (7.0-18.7); Calc. Creatinine Clearance 91 mL/min (70-130); Calcium 7.9 mg/dL (7.8-10.44); Carbon Dioxide 13 mmol/L (22-29); Chloride 110 mmol/L (98-107); Estimated GFR 114; Glucose 219 mg/dL (70-105); Potassium 3.9 mmol/L (3.5-5.1); Sodium 137 mmol/L (136-145)
[2023-11-02] MEDS: D5 LR w/20 mEq KCL 1,000 ML IV SCH (17:52)
[2023-11-02] MEDS: Ampicillin/Sulbactam 1.5 GM in Sodium Chloride 0.9% 100 ML IVPB SCH ×2 (17:52→22:18)
[2023-11-02] MEDS: LevoFLOXacin 500 mg/D5W 500 MG in Premix 1 BAG IVPB SCH (18:37)
[2023-11-02] MEDS: Potassium Chloride 20 MEQ TAB PO SCH ×2 (18:37→21:06)
[2023-11-02] MEDS: Insulin Glargine 30 UNITS/0.3 ML VIAL SC SCH (21:06)
[2023-11-02 21:11] LABS: Anion Gap 11 mmol/L (10-20); BUN (Urea Nitrogen) Less than 4 mg/dL (7.0-18.7); Calc. Creatinine Clearance 96 mL/min (70-130); Calcium 7.8 mg/dL (7.8-10.44); Carbon Dioxide 20 mmol/L (22-29); Chloride 109 mmol/L (98-107); Estimated GFR 115; Glucose 159 mg/dL (70-105); Potassium 3.6 mmol/L (3.5-5.1); Sodium 136 mmol/L (136-145)
[2023-11-02 21:42] LABS: Potassium, Urine 24.5 mmol/L
[2023-11-03] MEDS: D5 LR w/20 mEq KCL 1,000 ML IV SCH (01:32)
[2023-11-03 03:59] LABS: Anion Gap 10 mmol/L (10-20); BUN (Urea Nitrogen) Less than 4 mg/dL (7.0-18.7); Calc. Creatinine Clearance 103 mL/min (70-130); Calcium 8.1 mg/dL (7.8-10.44); Carbon Dioxide 24 mmol/L (22-29); Chloride 105 mmol/L (98-107); Estimated GFR 117; Glucose 139 mg/dL (70-105); Potassium 3.7 mmol/L (3.5-5.1); Sodium 135 mmol/L (136-145)
[2023-11-03] MEDS: Ampicillin/Sulbactam 1.5 GM in Sodium Chloride 0.9% 100 ML IVPB SCH ×4 (05:00→23:29)
[2023-11-03 05:13] VITALS: BMI 18.3
[2023-11-03] MEDS ORDERED: EPINEPHrine 1 MG/ML VIAL ONE (06:49)
[2023-11-03] MEDS ORDERED: Bupivacaine 0.25% HCL 30 ML VIAL ONE (06:50)
[2023-11-03] MEDS ORDERED: Fentanyl 250 MCG/5 ML VIAL ONE (07:33)
[2023-11-03] MEDS ORDERED: SUGAMMADEX SODIUM 200 MG/2 ML VIAL ONE (07:33)
[2023-11-03] MEDS ORDERED: PROPOFOL 20 ML ONE (07:33)
[2023-11-03] MEDS ORDERED: Rocuronium Bromide 10 MG/ML (10ML VIAL) ONE (07:41)
[2023-11-03] MEDS ORDERED: Ondansetron PF 4 MG/2 ML Vial ONE (07:41)
[2023-11-03] MEDS ORDERED: ePHEDrine Sulfate 50 MG/10 ML VIAL ONE (08:00)
[2023-11-03] MEDS ORDERED: PHENYLEPHRINE-NS 100 MCG/ML 10 ML SYRINGE ONE (08:11)
[2023-11-03] MEDS ORDERED: Lidocaine 2% PF 5 ML VIAL ONE (08:42)
[2023-11-03] MEDS ORDERED: fentaNYL 50 mcg/mL 1 mL Vial ONE (09:15)
[2023-11-03] MEDS: Sodium Bicarbonate Tab 325 MG TAB PO SCH ×3 (10:11→21:12)
[2023-11-03] MEDS: HYDROcodone/Acetaminophen 7.5/325 mg Tablet PO PRN ×3 (10:11→21:16)
[2023-11-03] MEDS: Sodium Chloride 0.9% 1,000 ML IV SCH ×2 (10:13→21:37)
[2023-11-03] MEDS: Insulin Glargine 30 UNITS/0.3 ML VIAL SC SCH ×3 (10:13→21:11)
[2023-11-03] MEDS: Pantoprazole 40 MG VIAL IVP SCH ×2 (10:13→21:12)
[2023-11-03] MEDS ORDERED: Insulin Glargine 30 UNITS/0.3 ML VIAL SC SCH (10:45)
[2023-11-03] MEDS: LevoFLOXacin 500 mg/D5W 500 MG in Premix 1 BAG IVPB SCH (16:53)
[2023-11-04] MEDS: Sodium Chloride 0.9% 1,000 ML IV SCH ×2 (05:01→17:06)
[2023-11-04 05:05] LABS: Anion Gap 14 mmol/L (10-20); BUN (Urea Nitrogen) Less than 4 mg/dL (7.0-18.7); Calc. Creatinine Clearance 115 mL/min (70-130); Calcium 7.6 mg/dL (7.8-10.44); Carbon Dioxide 24 mmol/L (22-29); Chloride 102 mmol/L (98-107); Estimated GFR 121; Glucose 143 mg/dL (70-105); Potassium 3.4 mmol/L (3.5-5.1); Sodium 137 mmol/L (136-145)
[2023-11-04] MEDS: Ampicillin/Sulbactam 1.5 GM in Sodium Chloride 0.9% 100 ML IVPB SCH ×2 (05:19→12:00)
[2023-11-04] MEDS ORDERED: Potassium Chloride 20 MEQ TAB PO SCH (08:00)
[2023-11-04] MEDS: HYDROcodone/Acetaminophen 5/325 mg Tablet PO PRN (09:01)
[2023-11-04] MEDS: Pantoprazole 40 MG VIAL IVP SCH (09:02)
[2023-11-04] MEDS: Sodium Bicarbonate Tab 325 MG TAB PO SCH ×2 (09:02→17:06)
[2023-11-04] MEDS: Insulin Glargine 30 UNITS/0.3 ML VIAL SC SCH (09:02)
[2023-11-04 16:49] VITALS: BP 145/84; TEMP 98.6
== END 2023-11-04 17:08 | disposition home or self-care (01) | DRG 987 ==
LOC: ERS 13:37 → ERHOLD 15:12 → MSONC 15:47 → CCU 11-02 09:52 → SURG B 11-03 20:53
PROVIDERS: ADMIT Internal Medicine; ATTEND Family Medicine
PROC: 4A043R1 Measurement of Venous Saturation, Peripheral, Percutaneous Approach (ICD-10-PCS; 2023-10-29)
PROC: 0FT44ZZ Resection of Gallbladder, Percutaneous Endoscopic Approach (ICD-10-PCS; principal; 2023-11-03)
PROC: 3E033XZ Introduction of Vasopressor into Peripheral Vein, Percutaneous Approach (ICD-10-PCS; 2023-11-03)
DX: E11.10 Type 2 diabetes mellitus with ketoacidosis without coma (principal); J69.0 Pneumonitis due to inhalation of food and vomit; K92.0 Hematemesis; K80.00 Calculus of gallbladder with acute cholecystitis without obstruction; Z98.890 Other specified postprocedural states; Z98.41 Cataract extraction status, right eye; Z98.42 Cataract extraction status, left eye; Z79.4 Long term (current) use of insulin; Z79.899 Other long term (current) drug therapy; Z11.52 Encounter for screening for COVID-19; E11.65 Type 2 diabetes mellitus with hyperglycemia; D72.829 Elevated white blood cell count, unspecified; E87.6 Hypokalemia
CPT/HCPCS: 36415; 36416; 71045; 76700; 80048; 80053; 81001; 82010; 82436; 82805; 83036; 83605; 83690; 83735; 83880; 84100; 84133; 84300; 84484; 84703; 85025; 86850; 86870; 86900; 86901; 86905; 86922; 87040; 88304; 93005; 94760; 96361; 96365; 96367; 96375; C1713; C9113; J0171; J0295; J0456; J0696; J1815; J1956; J2001; J2270; J2405; J2704; J3010; J3475; J3480; J3490; J7050; J7120; J7999; S0020

== ENCOUNTER 2023-11-23 10:08 | Emergency (ER) | payer SELFPAY ==
[2023-11-23] MEDS ORDERED: Morphine 4 MG/ML VIAL ONE (12:11)
[2023-11-23 12:15] LABS: #Monocytes 0.4 thou/uL (0.11-0.59); #Neutrophils 1.7 thou/uL (1.40-6.50); %Basophils 0.7 % (0.0-1.0); %Eosinophils 1.1 % (0.0-10.0); %Lymphocytes 22.2 % (21.0-51.0); %Monocytes 14.1 % (0.0-10.0); %Neutrophils 60.8 % (42.0-75.0); Hematocrit 35.4 % (36.0-47.0); Hemoglobin 11.1 g/dL (12.0-16.0); Mean Corpuscular HGB CONC 31.4 g/dL (32.0-36.0); Mean Corpuscular Hemoglobin 27.3 pg (27.0-31.0); Mean Corpuscular Volume 87.2 fl (78.0-98.0); Mean Platelet Volume 9.5 fL (7.4-10.4); Platelet Count 255 10x3/uL (130-400); Red Blood Cell (RBC) Count 4.06 mill/uL (4.20-5.40); White Blood Cell (WBC) Count 2.8 10x3/uL (4.8-10.8)
[2023-11-23] MEDS ORDERED: Magnesium 2 GM/50 ML BAG (IN WATER) ONE (12:15)
[2023-11-23 12:21] LABS: Bilirubin Small (Negative); Blood, Urine Trace (Negative); Glucose, Urine (Dipstick) 500 mg/dL (Negative); Ketone, Urine > or equal to 80 mg/dL (Negative); Leukocyte Negative (Negative); Nitrite Negative (Negative); Protein, Urine (Dipstick) 30 mg/dL (Neg-Trace); Urobilinogen 0.2 mg/dL (Less than 2); pH, Urine 5.5 (5.0-9.0)
[2023-11-23 12:23] LABS: Clarity Clear (Clear)
[2023-11-23 12:28] LABS: Specific Gravity, Urine 1.028 (1.002-1.036)
[2023-11-23 12:44] LABS: ALT (SGPT) 9 U/L (8-55); AST (SGOT) 14 U/L (5-34); Alkaline Phosphatase 102 U/L (40-110); Anion Gap 25 mmol/L (10-20); BUN (Urea Nitrogen) 9 mg/dL (7.0-18.7); Bilirubin, Total 0.8 mg/dL (0.2-1.2); Calc. Creatinine Clearance 0 mL/min (70-130); Calcium 8.8 mg/dL (7.8-10.44); Carbon Dioxide 12 mmol/L (22-29); Chloride 103 mmol/L (98-107); Estimated GFR 68; Globulin 3.3 g/dL (2.4-3.5); Glucose 298 mg/dL (70-105); Lipase 16 U/L (8-78); Magnesium 1.7 mg/dL (1.6-2.6); Potassium 3.9 mmol/L (3.5-5.1); Protein, Total 7.3 g/dL (6.0-8.3); Sodium 136 mmol/L (136-145)
[2023-11-23 12:57] LABS: Bacteria/HPF None Seen HPF (None Seen); CAUTI Indications for Culture Pelvic or flank pain; RBC/HPF 0-3 HPF (0-3); WBC/HPF 0-3 HPF (0-3); Yeast-Budding None Seen HPF (None Seen); Yeast-Hyphae None Seen HPF (None Seen)
[2023-11-23 12:58] LABS: Trichomonas/HPF None Seen HPF (None Seen); Urine Culture Reflex No No
[2023-11-23 13:05] LABS: BHCG - Serum Negative (NEGATIVE); Pregs Control Bar Appear? YES (CONTROL BAR)
[2023-11-23 13:06] LABS: Pregs Control Background? CLEAR/WHITE (CLR/WHITE)
[2023-11-23 13:13] LABS: Troponin I Less than 0.010 ng/mL (< 0.028)
[2023-11-23] MEDS ORDERED: Iopamidol-370 76% 500 ML MDV (1 ML CHARGE) ONE (13:48)
== END 2023-11-23 14:18 | disposition home or self-care (01) ==
LOC: ERS 10:08
DX: D25.9 Leiomyoma of uterus, unspecified (principal); K59.00 Constipation, unspecified; R10.32 Left lower quadrant pain; R11.2 Nausea with vomiting, unspecified; E11.9 Type 2 diabetes mellitus without complications
CPT/HCPCS: 36416; 74177; 80053; 81001; 83690; 83735; 84484; 84703; 85025; 93005; 96361; 96365; 96375; J2270; J3475; Q9967

== ENCOUNTER 2023-11-25 09:19 | Inpatient (IN) | payer SELFPAY ==
[2023-11-25 10:07] LABS: #Basophils 0.1 thou/uL (0.0-0.2); #Monocytes 1.2 thou/uL (0.11-0.59); %Basophils 0.4 % (0.0-1.0); %Eosinophils 0.1 % (0.0-10.0); %Lymphocytes 20.2 % (21.0-51.0); %Monocytes 7.4 % (0.0-10.0); %Neutrophils 69.9 % (42.0-75.0); Hematocrit 40.9 % (36.0-47.0); Hemoglobin 11.9 g/dL (12.0-16.0); Mean Corpuscular HGB CONC 29.1 g/dL (32.0-36.0); Mean Corpuscular Hemoglobin 27.4 pg (27.0-31.0); Platelet Count 352 10x3/uL (130-400); RBC Distribution Width 12.6 % (11.5-14.5); Red Blood Cell (RBC) Count 4.35 mill/uL (4.20-5.40); White Blood Cell (WBC) Count 15.7 10x3/uL (4.8-10.8)
[2023-11-25 10:41] LABS: ALT (SGPT) 9 U/L (8-55); AST (SGOT) 9 U/L (5-34); Albumin 4.2 g/dL (3.5-5.0); Alkaline Phosphatase 109 U/L (40-110); BUN (Urea Nitrogen) 10 mg/dL (7.0-18.7); Bilirubin, Total 0.4 mg/dL (0.2-1.2); Calc. Creatinine Clearance 0 mL/min (70-130); Calcium 8.6 mg/dL (7.8-10.44); Chloride 107 mmol/L (98-107); Estimated GFR 47; Globulin 3.2 g/dL (2.4-3.5); Potassium 3.9 mmol/L (3.5-5.1); Protein, Total 7.4 g/dL (6.0-8.3); Sodium 137 mmol/L (136-145)
[2023-11-25 11:10] LABS: Carbon Dioxide Less than 8 mmol/L (22-29); Glucose 601 mg/dL (70-105)
[2023-11-25] MEDS ORDERED: cefTRIAXone (ROCEPHIN) 1 GM VIAL ONE ×3 (11:33→12:08)
[2023-11-25] MEDS ORDERED: Sodium Chloride 0.9% 100 ML ONE ×2 (11:33→11:58)
[2023-11-25] MEDS ORDERED: INSULIN REGULAR IN 0.9 % NACL 100 UNITS/100 ML BAG ONE (11:33)
[2023-11-25 11:44] LABS: Acetaminophen Less than 10 mcg/mL (10.0-30.0); Alcohol Less than 10.0 mg/dL (Less than 10); Lipase 45 U/L (8-78); Salicylate Less than 8.0 mg/dL (15.0-30.0)
[2023-11-25 11:46] LABS: Troponin I Less than 0.010 ng/mL (< 0.028)
[2023-11-25 11:52] LABS: Calcium, Ionized (venous) 1.29 mmol/L (1.16-1.32); Chloride (VBG) 106 mmol/L (98-106); Hematocrit-VBG 40 % (36.0-47.0); Hemoglobin (Hb) 13.5 g/dL (11.7-15.5); Sodium 141 mmol/L (133-146)
[2023-11-25 11:57] LABS: Actual Bicarbonate (HCO3v) 2.7 mEq/L (22-28); Base Excess -33.5 mEq/L (-2.0 to +3.0); pH (venous) 6.691 (7.32-7.43)
[2023-11-25] MEDS ORDERED: NS 0.9% w/ 20 MEQ KCL 1,000 ML IV PRN (13:21)
[2023-11-25] MEDS ORDERED: Acetaminophen 325 MG TAB PO PRN (13:21)
[2023-11-25] MEDS ORDERED: Sodium Chloride 0.9% 1,000 ML IV PRN ×4 (13:21)
[2023-11-25] MEDS ORDERED: D5 1/2 NS w/20 mEq KCL 1,000 ML IV PRN (13:21)
[2023-11-25] MEDS ORDERED: Electrolyte Replacement Protocol IVPB SCH (13:21)
[2023-11-25] MEDS ORDERED: Dextrose 50% Abboject 50 ML SYRINGE SLOW IVP PRN (13:21)
[2023-11-25] MEDS ORDERED: Dextrose 5 %-0.45 % NaCl 1,000 ML IV PRN (13:21)
[2023-11-25] MEDS ORDERED: HUMULIN R 100 UNITS in Sodium Chloride 0.9% 100 ML IVPB SCH (13:30)
[2023-11-25 13:37] LABS: BHCG - Serum Negative (NEGATIVE); Pregs Control Background? CLEAR/WHITE (CLR/WHITE); Pregs Control Bar Appear? YES (CONTROL BAR)
[2023-11-25] MEDS ORDERED: Magnesium 2 GM/50 ML(in water) 2 GM in Premix 1 BAG IVPB SCH (13:45)
[2023-11-25 14:18] LABS: Lactic Acid 2.4 mmol/L (0.5-2.2)
[2023-11-25 14:24] LABS: BUN (Urea Nitrogen) 11 mg/dL (7.0-18.7); Calc. Creatinine Clearance 0 mL/min (70-130); Calcium 7.4 mg/dL (7.8-10.44); Chloride 113 mmol/L (98-107); Estimated GFR 58; Potassium 3.7 mmol/L (3.5-5.1); Sodium 140 mmol/L (136-145)
[2023-11-25 14:30] LABS: Carbon Dioxide Less than 8 mmol/L (22-29); Glucose 506 mg/dL (70-105)
[2023-11-25] MEDS ORDERED: Sodium Bicarb 50 mEq/50 ML VIAL IVP SCH (14:45)
[2023-11-25] MEDS ORDERED: Potassium Chloride 20 MEQ (100 mL) BAG ONE ×2 (15:41→18:06)
[2023-11-25 16:00] LABS: Bacteria/HPF 1+ HPF (None Seen); Bilirubin Negative (Negative); Blood, Urine 2+ (Negative); CAUTI Indications for Culture Pelvic or flank pain; Clarity Turbid (Clear); Glucose, Urine (Dipstick) Greater than 1000 mg/dL (Negative); Ketone, Urine Greater than 150 mg/dL (Negative); Leukocyte Negative Leu/uL (Negative); Nitrite Negative (Negative); Protein, Urine (Dipstick) 50 mg/dL (Neg-Trace); Specific Gravity, Urine 1.021 (1.002-1.036); Urobilinogen Normal mg/dL (Less than 2); WBC/HPF 0-3 HPF (0-3)
[2023-11-25 16:01] LABS: Pregnancy Test - Urine (BHCG) Negative (Negative); Pregu Control Background? CLEAR/WHITE (CLR/WHITE); Pregu Control Bar Appear? YES (CONTROL BAR); Specific Gravity 1.021 (1.002-1.036)
[2023-11-25 16:02] LABS: Urine Culture Reflex No No
[2023-11-25 16:07] LABS: Amphetamine Not Detected (NotDetected); Barbiturates Screen Not Detected (NotDetected); Benzodiazepine Screen Not Detected (NotDetected); Cocaine Metabolite Screen Not Detected (NotDetected); Methadone Not Detected (NotDetected); Methamphetamine Not Detected (NotDetected); Opiate Screen Not Detected (NotDetected); Oxycodone Screen Not Detected (NotDetected); Phencyclidine (PCP) Not Detected (NotDetected); THC/Cannabinoid Screen Not Detected (NotDetected); Tricyclic Screen Not Detected (NotDetected)
[2023-11-25 20:11] LABS: BUN (Urea Nitrogen) 11 mg/dL (7.0-18.7); Calc. Creatinine Clearance 0 mL/min (70-130); Calcium 7.6 mg/dL (7.8-10.44); Chloride 111 mmol/L (98-107); Estimated GFR 55; Potassium 4.2 mmol/L (3.5-5.1); Sodium 131 mmol/L (136-145)
[2023-11-25 20:13] LABS: Carbon Dioxide Less than 8 mmol/L (22-29); Glucose 645 mg/dL (70-105)
[2023-11-25] MEDS ORDERED: Pantoprazole 40 MG VIAL IVP SCH (21:00)
[2023-11-25 21:12] LABS: Base Excess -21.8 mEq/L (-2.0 to +3.0); Chloride (VBG) 110 mmol/L (98-106); Hematocrit-VBG 33 % (36.0-47.0); Hemoglobin (Hb) 11.1 g/dL (11.7-15.5); Potassium (VBG) 4.38 mmol/L (3.70-5.30); Sodium 136 mmol/L (133-146)
[2023-11-25 21:25] LABS: Critical Call Chemistry NUR.MGD@2125; Glucose 580 mg/dL (70-105)
[2023-11-25] MEDS: NS 0.9% w/ 20 MEQ KCL 1,000 ML IV PRN (21:42)
[2023-11-26 00:12] LABS: Base Excess -16.1 mEq/L (-2.0 to +3.0); Calcium, Ionized (venous) 1.19 mmol/L (1.16-1.32); Chloride (VBG) 114 mmol/L (98-106); Hematocrit-VBG 31 % (36.0-47.0); Hemoglobin (Hb) 10.7 g/dL (11.7-15.5); Potassium (VBG) 3.92 mmol/L (3.70-5.30); Sodium 138 mmol/L (133-146); pH (venous) 7.263 (7.32-7.43)
[2023-11-26] MEDS: NS 0.9% w/ 20 MEQ KCL 1,000 ML IV PRN (00:16)
[2023-11-26 00:34] LABS: Anion Gap 15 mmol/L (10-20); BUN (Urea Nitrogen) 9 mg/dL (7.0-18.7); Calc. Creatinine Clearance 44 mL/min (70-130); Calcium 8.1 mg/dL (7.8-10.44); Chloride 118 mmol/L (98-107); Estimated GFR 58; Glucose 346 mg/dL (70-105); Potassium 3.9 mmol/L (3.5-5.1); Sodium 137 mmol/L (136-145)
[2023-11-26 00:37] LABS: Carbon Dioxide 8 mmol/L (22-29); Critical Call Chemistry NUR.MGD@0036
[2023-11-26] MEDS: Ondansetron PF 4 MG/2 ML Vial IVP PRN ×2 (02:00→11:11)
[2023-11-26 06:53] LABS: #Monocytes 1.2 thou/uL (0.11-0.59); #Neutrophils 6.2 thou/uL (1.40-6.50); %Basophils 0.1 % (0.0-1.0); %Lymphocytes 7.8 % (21.0-51.0); %Monocytes 14.5 % (0.0-10.0); %Neutrophils 76.8 % (42.0-75.0); Mean Corpuscular HGB CONC 32.6 g/dL (32.0-36.0); Mean Platelet Volume 10.2 fL (7.4-10.4); RBC Distribution Width 12.5 % (11.5-14.5)
[2023-11-26 06:57] LABS: Hematocrit 27.3 % (36.0-47.0); Hemoglobin 8.9 g/dL (12.0-16.0); Mean Corpuscular Volume 82.7 fl (78.0-98.0); Platelet Count 166 10x3/uL (130-400)
[2023-11-26 08:06] LABS: Anion Gap 11 mmol/L (10-20); Calcium 7.8 mg/dL (7.8-10.44); Carbon Dioxide 15 mmol/L (22-29); Chloride 116 mmol/L (98-107); Glucose 279 mg/dL (70-105); Potassium 3.3 mmol/L (3.5-5.1); Sodium 139 mmol/L (136-145)
[2023-11-26 08:08] LABS: Calc. Creatinine Clearance 54 mL/min (70-130); Estimated GFR 73
[2023-11-26 08:09] LABS: BUN (Urea Nitrogen) 7 mg/dL (7.0-18.7)
[2023-11-26 08:32] LABS: Critical Call Chemistry NUR.ERG@0835; Phosphorus Less than 1.0 mg/dL (2.3-4.7)
[2023-11-26] MEDS ORDERED: DC Electrolyte Protocol FS ONE (08:33)
[2023-11-26] MEDS ORDERED: Dextrose 5% in Water 1,000 ML IV PRN (08:36)
[2023-11-26] MEDS ORDERED: Dextrose 50% Abboject 50 ML SYRINGE SLOW IVP PRN (08:36)
[2023-11-26] MEDS ORDERED: Glucagon 1 MG/ML KIT IM PRN (08:36)
[2023-11-26] MEDS ORDERED: Insulin Regular 300 UNITS/3 ML VIAL SC PRN ×3 (08:36→20:48)
[2023-11-26] MEDS ORDERED: hydrALAZINE 25 MG TAB PO PRN (08:42)
[2023-11-26] MEDS ORDERED: Potassium Phosphate 30 MMOL in Sodium Chloride 0.9% 250 ML 250 ML IVPB SCH (08:45)
[2023-11-26] MEDS ORDERED: Potassium Bicarbonate/Cit Ac 20 MEQ TAB PO SCH (08:45)
[2023-11-26] MEDS ORDERED: D5 1/2 NS w/40 mEq KCL 1,000 ML IV SCH (08:45)
[2023-11-26] MEDS ORDERED: Insulin Glargine 30 UNITS/0.3 ML VIAL SC SCH ×2 (09:00→21:00)
[2023-11-26] MEDS: Enoxaparin 40 MG (0.4 mL) SYRINGE SC SCH (09:38)
[2023-11-26] MEDS ORDERED: Ondansetron PF 4 MG/2 ML Vial IVP PRN (10:00)
[2023-11-26] MEDS: K-Phos Neutral 250 MG TAB PO SCH ×2 (11:11→16:03)
[2023-11-26] MEDS ORDERED: Cefdinir 300 MG CAP PO SCH (12:15)
[2023-11-26 13:27] LABS: Magnesium 1.2 mg/dL (1.6-2.6)
[2023-11-26] MEDS: Insulin Regular 300 UNITS/3 ML VIAL SC PRN ×2 (13:40→16:09)
[2023-11-26] MEDS ORDERED: D5 1/2 NS w/20 mEq KCL 1,000 ML IV SCH (15:00)
[2023-11-26] MEDS ORDERED: 1/2 NS w/Potassium 20 mEq 1,000 ML IV SCH (15:30)
[2023-11-26] MEDS: D5 1/2 NS w/20 mEq KCL 1,000 ML IV SCH ×2 (16:33→20:05)
[2023-11-26] MEDS: Cefdinir 300 MG CAP PO SCH (20:05)
[2023-11-26] MEDS ORDERED: Magnesium Sulfate In Water 4 GM in Premix 1 BAG IVPB SCH (21:00)
[2023-11-27 03:46] VITALS: BMI 18.6
[2023-11-27 05:45] LABS: #Neutrophils 5.3 thou/uL (1.40-6.50); %Basophils 0.1 % (0.0-1.0); %Eosinophils 0.3 % (0.0-10.0); %Lymphocytes 12.8 % (21.0-51.0); %Monocytes 13.2 % (0.0-10.0); %Neutrophils 72.9 % (42.0-75.0); Hematocrit 27.3 % (36.0-47.0); Hemoglobin 9.1 g/dL (12.0-16.0); Mean Corpuscular HGB CONC 33.3 g/dL (32.0-36.0); Mean Corpuscular Hemoglobin 27.3 pg (27.0-31.0); Mean Platelet Volume 10.4 fL (7.4-10.4); Platelet Count 159 10x3/uL (130-400); RBC Distribution Width 12.8 % (11.5-14.5); Red Blood Cell (RBC) Count 3.33 mill/uL (4.20-5.40); White Blood Cell (WBC) Count 7.3 10x3/uL (4.8-10.8)
[2023-11-27 06:08] LABS: Anion Gap 11 mmol/L (10-20); BUN (Urea Nitrogen) Less than 4 mg/dL (7.0-18.7); Calc. Creatinine Clearance 90 mL/min (70-130); Calcium 7.7 mg/dL (7.8-10.44); Carbon Dioxide 24 mmol/L (22-29); Chloride 107 mmol/L (98-107); Estimated GFR 115; Glucose 257 mg/dL (70-105); Magnesium 2.9 mg/dL (1.6-2.6); Phosphorus 2.4 mg/dL (2.3-4.7); Potassium 2.8 mmol/L (3.5-5.1); Sodium 139 mmol/L (136-145)
[2023-11-27] MEDS: Potassium Bicarbonate/Cit Ac 20 MEQ TAB PO SCH ×4 (08:50→21:00)
[2023-11-27] MEDS: K-Phos Neutral 250 MG TAB PO SCH ×2 (08:50→12:53)
[2023-11-27] MEDS: Cefdinir 300 MG CAP PO SCH ×2 (08:50→19:52)
[2023-11-27] MEDS: Enoxaparin 40 MG (0.4 mL) SYRINGE SC SCH (08:51)
[2023-11-27] MEDS: Insulin Glargine 30 UNITS/0.3 ML VIAL SC SCH (08:53)
[2023-11-27] MEDS ORDERED: Insulin Glargine 30 UNITS/0.3 ML VIAL SC SCH (09:00)
[2023-11-27] MEDS: Potassium Chloride 40 MEQ in Sodium Chloride 0.45% 1,000 ML IV SCH ×2 (11:13→18:49)
[2023-11-27 15:54] LABS: Anion Gap 15 mmol/L (10-20); BUN (Urea Nitrogen) Less than 4 mg/dL (7.0-18.7); Calc. Creatinine Clearance 102 mL/min (70-130); Calcium 7.7 mg/dL (7.8-10.44); Carbon Dioxide 21 mmol/L (22-29); Chloride 106 mmol/L (98-107); Estimated GFR 118; Glucose 109 mg/dL (70-105); Potassium 3.3 mmol/L (3.5-5.1); Sodium 139 mmol/L (136-145)
[2023-11-28] MEDS: Potassium Chloride 40 MEQ in Sodium Chloride 0.45% 1,000 ML IV SCH ×2 (00:46→08:32)
[2023-11-28 05:13] LABS: Anion Gap 9 mmol/L (10-20); BUN (Urea Nitrogen) Less than 4 mg/dL (7.0-18.7); Calc. Creatinine Clearance 110 mL/min (70-130); Calcium 7.9 mg/dL (7.8-10.44); Carbon Dioxide 27 mmol/L (22-29); Chloride 107 mmol/L (98-107); Estimated GFR 120; Glucose 123 mg/dL (70-105); Magnesium 1.8 mg/dL (1.6-2.6); Phosphorus 2.9 mg/dL (2.3-4.7); Potassium 3.7 mmol/L (3.5-5.1); Sodium 139 mmol/L (136-145)
[2023-11-28] MEDS: Cefdinir 300 MG CAP PO SCH (08:34)
[2023-11-28] MEDS: Enoxaparin 40 MG (0.4 mL) SYRINGE SC SCH (08:34)
[2023-11-28] MEDS: Insulin Glargine 30 UNITS/0.3 ML VIAL SC SCH (08:35)
[2023-11-28 11:36] VITALS: BP 109/72; TEMP 98.1
[2023-11-29 13:56] LABS: Actual Bicarbonate (HCO3v) 5.2 mEq/L (22-28); pH (venous) 7.136 (7.32-7.43)
== END 2023-11-28 14:15 | disposition home or self-care (01) | DRG 638 ==
LOC: ERS 09:19 → ERHOLD 12:48 → IMCU/EMU 19:25 → SURG A 11-26 17:46
PROVIDERS: ADMIT Internal Medicine; ATTEND Hospitalist
DX: E11.10 Type 2 diabetes mellitus with ketoacidosis without coma (principal); N17.9 Acute kidney failure, unspecified; N39.0 Urinary tract infection, site not specified; Z90.49 Acquired absence of other specified parts of digestive tract; Z79.4 Long term (current) use of insulin; Z79.899 Other long term (current) drug therapy; Z98.890 Other specified postprocedural states; Z98.41 Cataract extraction status, right eye; Z98.42 Cataract extraction status, left eye; E83.42 Hypomagnesemia; E83.39 Other disorders of phosphorus metabolism
CPT/HCPCS: 36415; 36416; 71045; 74019; 76705; 80048; 80053; 80306; 80307; 81001; 81025; 82010; 82805; 83605; 83690; 83735; 84100; 84443; 84484; 84703; 85025; 87040; 87086; 93005; C9113; J0696; J1650; J1815; J2405; J3475; J3480; J3490; J7050

== ENCOUNTER 2023-12-18 19:57 | Inpatient (IN) | payer SELFPAY ==
[2023-12-18 20:29] LABS: #Monocytes 1.2 thou/uL (0.11-0.59); #Neutrophils 15.7 thou/uL (1.40-6.50); %Basophils 0.2 % (0.0-1.0); %Lymphocytes 9.1 % (21.0-51.0); %Monocytes 6.3 % (0.0-10.0); Hematocrit 39.3 % (36.0-47.0); Hemoglobin 11.8 g/dL (12.0-16.0); Mean Corpuscular Hemoglobin 26.5 pg (27.0-31.0); Mean Corpuscular Volume 88.3 fl (78.0-98.0); Mean Platelet Volume 10.5 fL (7.4-10.4); Platelet Count 432 10x3/uL (130-400); RBC Distribution Width 13.2 % (11.5-14.5); Red Blood Cell (RBC) Count 4.45 mill/uL (4.20-5.40); White Blood Cell (WBC) Count 18.7 10x3/uL (4.8-10.8)
[2023-12-18 20:42] LABS: Prothrombin Time 12.8 sec (12.0-14.7)
[2023-12-18 20:43] LABS: PTT 23.8 sec (22.9-36.1)
[2023-12-18 20:51] LABS: ALT (SGPT) 19 U/L (8-55); AST (SGOT) 13 U/L (5-34); Albumin 4.6 g/dL (3.5-5.0); Alkaline Phosphatase 127 U/L (40-110); BUN (Urea Nitrogen) 28 mg/dL (7.0-18.7); Bilirubin, Total 0.8 mg/dL (0.2-1.2); Calc. Creatinine Clearance 0 mL/min (70-130); Calcium 9.8 mg/dL (7.8-10.44); Chloride 98 mmol/L (98-107); Estimated GFR 35; Globulin 3.4 g/dL (2.4-3.5); Sodium 136 mmol/L (136-145)
[2023-12-18 20:56] LABS: Carbon Dioxide Less than 8 mmol/L (22-29); Critical Call Chemistry NUR.KVR @2056; Glucose 545 mg/dL (70-105)
[2023-12-18 22:34] LABS: Analyzer IN Cardio ER; Base Excess (BEa) -23.2 mEq/L (-2.0 to +3.0); Carboxyhemoglobin (COHb) 0.3 gm% (0.0-3.0); Hematocrit-ABG 32 % (36.0-47.0); Hemoglobin (Hb) 10.8 g/dL (12.0-16.0); O2 Tension (PaO2), arterial 84.1 mmHg (80.0-100.0)
[2023-12-18 22:37] LABS: ALV-art Gradient 45.505 mmHg (0-20); Puncture Site RBA
[2023-12-18 22:51] LABS: BHCG - Serum Negative (NEGATIVE); Pregs Control Background? CLEAR/WHITE (CLR/WHITE); Pregs Control Bar Appear? YES (CONTROL BAR)
[2023-12-18 22:56] LABS: Alcohol Less than 10.0 mg/dL (Less than 10)
[2023-12-18 22:56] LABS: Phosphorus 5.3 mg/dL (2.3-4.7)
[2023-12-18 22:58] LABS: Acetaminophen Less than 10 mcg/mL (10.0-30.0); Salicylate Less than 8.0 mg/dL (15.0-30.0)
[2023-12-18 22:58] LABS: Magnesium 1.9 mg/dL (1.6-2.6)
[2023-12-18 23:07] LABS: Troponin I 0.012 ng/mL (< 0.028)
[2023-12-18 23:37] LABS: Lactic Acid 2.9 mmol/L (0.5-2.2)
[2023-12-18 23:47] LABS: Bacteria/HPF None Seen HPF (None Seen); Bilirubin Negative (Negative); Blood, Urine Negative (Negative); CAUTI Indications for Culture Pelvic or flank pain; Clarity Clear (Clear); Glucose, Urine (Dipstick) Greater than 1000 mg/dL (Negative); Ketone, Urine Greater than 150 mg/dL (Negative); Leukocyte Negative Leu/uL (Negative); Nitrite Negative (Negative); Protein, Urine (Dipstick) 70 mg/dL (Neg-Trace); RBC/HPF None Seen HPF (0-3); Specific Gravity, Urine 1.017 (1.002-1.036); Squamous Epithelial 0-3 HPF (0-3); Urobilinogen Normal mg/dL (Less than 2); pH, Urine 5.5 (5.0-9.0)
[2023-12-18] MEDS ORDERED: NS 0.9% w/ 20 MEQ KCL 1,000 ML ONE (23:47)
[2023-12-18] MEDS ORDERED: INSULIN REGULAR IN 0.9 % NACL 100 UNITS/100 ML BAG ONE (23:47)
[2023-12-18 23:48] LABS: Urine Culture Reflex No No
[2023-12-19] MEDS ORDERED: Dextrose 5 %-0.45 % NaCl 1,000 ML IV PRN (01:20)
[2023-12-19] MEDS ORDERED: Sodium Chloride 0.9% 1,000 ML IV PRN ×4 (01:20)
[2023-12-19] MEDS ORDERED: NS 0.9% w/ 20 MEQ KCL 1,000 ML IV PRN (01:20)
[2023-12-19] MEDS ORDERED: Dextrose 50% Abboject 50 ML SYRINGE SLOW IVP PRN (01:20)
[2023-12-19] MEDS ORDERED: Acetaminophen 325 MG TAB PO PRN (01:22)
[2023-12-19] MEDS ORDERED: Ondansetron ODT 4 MG TAB PO PRN (01:22)
[2023-12-19 01:52] LABS: #Monocytes 1.3 thou/uL (0.11-0.59); #Neutrophils 16.2 thou/uL (1.40-6.50); %Basophils 0.2 % (0.0-1.0); %Lymphocytes 2.5 % (21.0-51.0); %Monocytes 7.2 % (0.0-10.0); %Neutrophils 89.6 % (42.0-75.0); Hematocrit 36.5 % (36.0-47.0); Mean Corpuscular HGB CONC 30.1 g/dL (32.0-36.0); Mean Corpuscular Hemoglobin 26.8 pg (27.0-31.0); Mean Corpuscular Volume 88.8 fl (78.0-98.0); RBC Distribution Width 13.2 % (11.5-14.5); Red Blood Cell (RBC) Count 4.11 mill/uL (4.20-5.40)
[2023-12-19 01:56] LABS: Platelet Count 320 10x3/uL (130-400)
[2023-12-19] MEDS ORDERED: NS 0.9% w/ 20 MEQ KCL 1,000 ML ONE (02:08)
[2023-12-19 02:12] LABS: BUN (Urea Nitrogen) 26 mg/dL (7.0-18.7); Calc. Creatinine Clearance 0 mL/min (70-130); Calcium 8.4 mg/dL (7.8-10.44); Chloride 109 mmol/L (98-107); Estimated GFR 41; Potassium 4.2 mmol/L (3.5-5.1); Sodium 144 mmol/L (136-145)
[2023-12-19 02:28] LABS: Carbon Dioxide Less than 8 mmol/L (22-29); Critical Call Chemistry ICU.RB@0228; Glucose 581 mg/dL (70-105)
[2023-12-19 02:28] LABS: BUN (Urea Nitrogen) 20 mg/dL (7.0-18.7); Calc. Creatinine Clearance 0 mL/min (70-130); Chloride 117 mmol/L (98-107); Estimated GFR 50; Potassium 4.5 mmol/L (3.5-5.1); Sodium 146 mmol/L (136-145)
[2023-12-19 02:32] LABS: Carbon Dioxide Less than 8 mmol/L (22-29); Critical Call Chemistry ICU.RB@0231; Glucose 415 mg/dL (70-105)
[2023-12-19] MEDS: Electrolyte Replacement Protocol 1 EACH IVPB ONE (02:53)
[2023-12-19] MEDS: Ondansetron PF 4 MG/2 ML Vial IVP PRN (04:15)
[2023-12-19] MEDS: NS 0.9% w/ 20 MEQ KCL 1,000 ML IV PRN (04:22)
[2023-12-19] MEDS: Levothyroxine Sodium 50 MCG TAB PO SCH (05:05)
[2023-12-19 05:06] VITALS: BMI 17.5
[2023-12-19 05:33] LABS: Amphetamine Not Detected (NotDetected); Barbiturates Screen Not Detected (NotDetected); Benzodiazepine Screen Not Detected (NotDetected); Cocaine Metabolite Screen Not Detected (NotDetected); Methadone Not Detected (NotDetected); Methamphetamine Not Detected (NotDetected); Opiate Screen Not Detected (NotDetected); Oxycodone Screen Not Detected (NotDetected); Phencyclidine (PCP) Not Detected (NotDetected); THC/Cannabinoid Screen Not Detected (NotDetected); Tricyclic Screen Not Detected (NotDetected)
[2023-12-19 05:41] LABS: Calcium 8.6 mg/dL (7.8-10.44)
[2023-12-19 05:53] LABS: Anion Gap 22 mmol/L (10-20); BUN (Urea Nitrogen) 15 mg/dL (7.0-18.7); Calc. Creatinine Clearance 37 mL/min (70-130); Calcium 8.3 mg/dL (7.8-10.44); Chloride 120 mmol/L (98-107); Estimated GFR 55; Glucose 253 mg/dL (70-105); Potassium 4.1 mmol/L (3.5-5.1); Sodium 147 mmol/L (136-145)
[2023-12-19] MEDS: D5 1/2 NS w/20 mEq KCL 1,000 ML IV PRN (06:02)
[2023-12-19 06:07] LABS: Carbon Dioxide 9 mmol/L (22-29); Critical Call Chemistry ICU.RB@0607
[2023-12-19] MEDS: Famotidine/PF 20 mg/2ml Vial SLOW IVP SCH (08:18)
[2023-12-19] MEDS: Enoxaparin 30 MG (0.3 mL) SYRINGE SC SCH (08:18)
[2023-12-19] MEDS: Famotidine 20 MG TAB PO SCH (08:19)
[2023-12-19] MEDS: FLU VACC QS2023-24(6MOS UP)/PF 60 MCG/0.5 ML SYRINGE IM ONE (08:22)
[2023-12-19 10:09] LABS: Anion Gap 10 mmol/L (10-20); BUN (Urea Nitrogen) 10 mg/dL (7.0-18.7); Calc. Creatinine Clearance 45 mL/min (70-130); Calcium 7.8 mg/dL (7.8-10.44); Carbon Dioxide 17 mmol/L (22-29); Chloride 119 mmol/L (98-107); Estimated GFR 68; Glucose 292 mg/dL (70-105); Potassium 3.8 mmol/L (3.5-5.1); Sodium 142 mmol/L (136-145)
[2023-12-19 10:10] LABS: Actual Bicarbonate (HCO3a) 4.7 mEq/L (22-28); CO2 Tension 16.1 mmHg (35.0-45.0); pH, Arterial 7.087 (7.35-7.45)
[2023-12-19 13:58] LABS: Anion Gap 9 mmol/L (10-20); BUN (Urea Nitrogen) 8 mg/dL (7.0-18.7); Calc. Creatinine Clearance 49 mL/min (70-130); Calcium 8.3 mg/dL (7.8-10.44); Carbon Dioxide 14 mmol/L (22-29); Chloride 120 mmol/L (98-107); Estimated GFR 77; Glucose 245 mg/dL (70-105); Potassium 3.4 mmol/L (3.5-5.1); Sodium 140 mmol/L (136-145)
[2023-12-19] MEDS: HUMULIN R 100 UNITS in Sodium Chloride 0.9% 100 ML IVPB SCH (14:34)
[2023-12-19] MEDS ORDERED: Glucagon 1 MG/ML KIT IM PRN (19:20)
[2023-12-19] MEDS ORDERED: Dextrose 5% in Water 1,000 ML IV PRN (19:20)
[2023-12-19] MEDS: Insulin Glargine 30 UNITS/0.3 ML VIAL SC SCH (19:50)
[2023-12-19] MEDS: Sodium Chloride 0.9% 1,000 ML IV SCH (19:53)
[2023-12-19] MEDS: Calcium Carbonate 500 MG ChewTAB PO PRN (22:27)
[2023-12-19] MEDS: HumaLOG 300 UNITS/3 ML VIAL SC PRN (22:38)
[2023-12-19 23:43] LABS: Anion Gap 15 mmol/L (10-20); BUN (Urea Nitrogen) 5 mg/dL (7.0-18.7); Calc. Creatinine Clearance 61 mL/min (70-130); Calcium 8.5 mg/dL (7.8-10.44); Carbon Dioxide 13 mmol/L (22-29); Chloride 112 mmol/L (98-107); Estimated GFR 100; Glucose 265 mg/dL (70-105); Potassium 3.6 mmol/L (3.5-5.1); Sodium 136 mmol/L (136-145)
[2023-12-20 06:37] LABS: #Monocytes 0.9 thou/uL (0.11-0.59); #Neutrophils 6.2 thou/uL (1.40-6.50); %Basophils 0.4 % (0.0-1.0); %Eosinophils 0.5 % (0.0-10.0); %Lymphocytes 12.7 % (21.0-51.0); %Monocytes 10.7 % (0.0-10.0); %Neutrophils 75.3 % (42.0-75.0); Hemoglobin 9.5 g/dL (12.0-16.0); Mean Corpuscular HGB CONC 31.7 g/dL (32.0-36.0); Mean Corpuscular Volume 82.2 fl (78.0-98.0); Mean Platelet Volume 10.5 fL (7.4-10.4); Platelet Count 221 10x3/uL (130-400); RBC Distribution Width 13.6 % (11.5-14.5); Red Blood Cell (RBC) Count 3.65 mill/uL (4.20-5.40); White Blood Cell (WBC) Count 8.3 10x3/uL (4.8-10.8)
[2023-12-20] MEDS: HumaLOG 300 UNITS/3 ML VIAL SC PRN (06:44)
[2023-12-20 06:54] LABS: Anion Gap 11 mmol/L (10-20); BUN (Urea Nitrogen) Less than 4 mg/dL (7.0-18.7); Calc. Creatinine Clearance 79 mL/min (70-130); Calcium 8.6 mg/dL (7.8-10.44); Carbon Dioxide 18 mmol/L (22-29); Chloride 112 mmol/L (98-107); Estimated GFR 113; Glucose 177 mg/dL (70-105); Potassium 3.1 mmol/L (3.5-5.1); Sodium 138 mmol/L (136-145)
[2023-12-20] MEDS: Potassium Chloride 20 MEQ TAB PO SCH ×2 (10:16→18:09)
[2023-12-20] MEDS: Famotidine 20 MG TAB PO SCH (10:17)
[2023-12-20] MEDS: Insulin Glargine 30 UNITS/0.3 ML VIAL SC SCH (20:18)
[2023-12-21 06:28] LABS: #Eosinphils 0.1 thou/uL (0.0-0.7); #Monocytes 0.6 thou/uL (0.11-0.59); #Neutrophils 4.5 thou/uL (1.40-6.50); %Basophils 0.3 % (0.0-1.0); %Eosinophils 1.3 % (0.0-10.0); %Lymphocytes 14.1 % (21.0-51.0); %Monocytes 10.5 % (0.0-10.0); %Neutrophils 73.3 % (42.0-75.0); Hematocrit 29.6 % (36.0-47.0); Hemoglobin 9.5 g/dL (12.0-16.0); Mean Corpuscular HGB CONC 32.1 g/dL (32.0-36.0); Mean Corpuscular Hemoglobin 26.4 pg (27.0-31.0); Mean Corpuscular Volume 82.2 fl (78.0-98.0); Mean Platelet Volume 10.2 fL (7.4-10.4); Platelet Count 206 10x3/uL (130-400); RBC Distribution Width 13.6 % (11.5-14.5); White Blood Cell (WBC) Count 6.1 10x3/uL (4.8-10.8)
[2023-12-21 06:48] LABS: Anion Gap 11 mmol/L (10-20); BUN (Urea Nitrogen) 5 mg/dL (7.0-18.7); Calc. Creatinine Clearance 88 mL/min (70-130); Calcium 8.3 mg/dL (7.8-10.44); Carbon Dioxide 24 mmol/L (22-29); Chloride 105 mmol/L (98-107); Estimated GFR 116; Glucose 224 mg/dL (70-105); Potassium 3.6 mmol/L (3.5-5.1); Sodium 136 mmol/L (136-145)
[2023-12-21 08:16] VITALS: TEMP 97.9
== END 2023-12-21 12:13 | disposition home or self-care (01) | DRG 637 ==
LOC: ERS 19:57 → CCU 12-19 01:37 → IMCU/EMU 12-19 18:31
PROVIDERS: ADMIT Student in an Organized Health Care Education/Training Program; ATTEND Internal Medicine
PROC: 4A033R1 Measurement of Arterial Saturation, Peripheral, Percutaneous Approach (ICD-10-PCS; principal; 2023-12-18)
DX: E11.10 Type 2 diabetes mellitus with ketoacidosis without coma (principal); E43 Unspecified severe protein-calorie malnutrition; N17.9 Acute kidney failure, unspecified; E87.1 Hypo-osmolality and hyponatremia; Z68.1 Body mass index [BMI] 19.9 or less, adult; D72.829 Elevated white blood cell count, unspecified; E78.00 Pure hypercholesterolemia, unspecified; Z90.49 Acquired absence of other specified parts of digestive tract; Z98.891 History of uterine scar from previous surgery; Z98.49 Cataract extraction status, unspecified eye; Z79.890 Hormone replacement therapy; Z79.899 Other long term (current) drug therapy; Z79.4 Long term (current) use of insulin
CPT/HCPCS: 36415; 36416; 36600; 51702; 71045; 80048; 80053; 80306; 80307; 82010; 82805; 83605; 83735; 83930; 84100; 84145; 84443; 84484; 84703; 85025; 85520; 85610; 85730; 87040; 87077; 87149; 93005; 96361; 96365; 96366; 96376; J1650; J1815; J2405; J3480; J3490; J7030; J7042; J7050; S0028

== ENCOUNTER 2024-03-28 02:07 | Inpatient (IN) | payer SELFPAY ==
[2024-03-28 03:04] LABS: #Basophils 0.05 10x3/uL (0.0-0.2); #Eosinphils Less than 0.03 10x3/uL (0.0-0.7); %Basophils 0.5 % (0.0-1.0); %Lymphocytes 19.2 % (21.0-51.0); %Monocytes 9.4 % (0.0-10.0); %Neutrophils 68.9 % (42.0-75.0); Hemoglobin 11.7 g/dL (12.0-16.0); Mean Corpuscular Hemoglobin 25.1 pg (27.0-31.0); Mean Corpuscular Volume 83.5 fL (78.0-98.0); Platelet Count 372 10x3/uL (130-400); Red Blood Cell (RBC) Count 4.67 mill/uL (4.20-5.40)
[2024-03-28 03:09] LABS: Base Excess -26.6 mEq/L (-2.0 to +3.0); Calcium, Ionized (venous) 1.25 mmol/L (1.16-1.32); Chloride (VBG) 106 mmol/L (98-106); Hematocrit-VBG 38 % (36.0-47.0); Potassium (VBG) 4.56 mmol/L (3.70-5.30); Sodium 141 mmol/L (133-146)
[2024-03-28 03:10] LABS: pH (venous) 6.946 (7.32-7.43)
[2024-03-28 03:12] LABS: Actual Bicarbonate (HCO3v) 4.2 mEq/L (22-28)
[2024-03-28 03:19] LABS: ALT (SGPT) 21 U/L (8-55); AST (SGOT) 25 U/L (5-34); Albumin 4.3 g/dL (3.5-5.0); Alkaline Phosphatase 131 U/L (40-110); BUN (Urea Nitrogen) 12 mg/dL (7.0-18.7); Bilirubin, Total 0.5 mg/dL (0.2-1.2); Calc. Creatinine Clearance 0 mL/min (70-130); Calcium 9.3 mg/dL (7.8-10.44); Carbon Dioxide Less than 8 mmol/L (22-29); Chloride 107 mmol/L (98-107); Estimated GFR 39; Globulin 4.3 g/dL (2.4-3.5); Glucose 403 mg/dL (70-105); Lipase 25 U/L (8-78); Potassium 4.2 mmol/L (3.5-5.1); Protein, Total 8.6 g/dL (6.0-8.3); Sodium 134 mmol/L (136-145); Troponin I 0.019 ng/mL (< 0.028)
[2024-03-28 03:22] LABS: BHCG - Serum Negative (NEGATIVE); Pregs Control Background? CLEAR/WHITE (CLR/WHITE); Pregs Control Bar Appear? YES (CONTROL BAR)
[2024-03-28] MEDS ORDERED: INSULIN REGULAR IN 0.9 % NACL 100 UNITS/100 ML BAG ONE (03:43)
[2024-03-28] MEDS ORDERED: Sodium Bicarb 50 mEq/50 ML VIAL ONE (03:43)
[2024-03-28] MEDS ORDERED: Acetaminophen 325 MG TAB PO PRN (03:57)
[2024-03-28] MEDS ORDERED: Sodium Chloride 0.9% 1,000 ML IV PRN ×3 (03:58)
[2024-03-28] MEDS ORDERED: Dextrose 5 %-0.45 % NaCl 1,000 ML IV PRN (03:58)
[2024-03-28] MEDS ORDERED: Electrolyte Replacement Protocol 1 EACH IVPB PRN (03:58)
[2024-03-28] MEDS: Sodium Chloride 0.9% 1,000 ML IV PRN (05:00)
[2024-03-28] MEDS: NS 0.9% w/ 20 MEQ KCL 1,000 ML IV PRN ×2 (06:00→22:37)
[2024-03-28 06:16] VITALS: BMI 17.4
[2024-03-28 06:53] LABS: Bacteria/HPF 1+ HPF (None Seen); Bilirubin Negative (Negative); Blood, Urine Trace (Negative); Clarity Clear (Clear); Glucose, Urine (Dipstick) Greater than 1000 mg/dL (Negative); Ketone, Urine Greater than 150 mg/dL (Negative); Leukocyte Negative Leu/uL (Negative); Nitrite Negative (Negative); Protein, Urine (Dipstick) 50 mg/dL (Neg-Trace); RBC/HPF 0-3 HPF (0-3); Specific Gravity, Urine 1.018 (1.002-1.036); Squamous Epithelial 0-3 HPF (0-3); Urobilinogen Normal mg/dL (Less than 2); pH, Urine 5.5 (5.0-9.0)
[2024-03-28 07:24] LABS: Analyzer IN Cardio ER; Base Excess -21.6 mEq/L (-2.0 to +3.0); Calcium, Ionized (venous) 1.19 mmol/L (1.16-1.32); Chloride (VBG) 114 mmol/L (98-106); Hematocrit-VBG 31 % (36.0-47.0); Hemoglobin (Hb) 10.7 g/dL (11.7-15.5); Potassium (VBG) 3.38 mmol/L (3.70-5.30); Sodium 143 mmol/L (133-146)
[2024-03-28 07:31] LABS: Actual Bicarbonate (HCO3v) 6.5 mEq/L (22-28); pH (venous) 7.092 (7.32-7.43)
[2024-03-28 07:32] LABS: Influenza A by NAA Not Detected (NotDetected); Influenza B by NAA Not Detected (NotDetected); SARS-CoV-2 NAA Rapid Test Not Detected (NotDetected)
[2024-03-28 07:57] LABS: Anion Gap 19 mmol/L (10-20); BUN (Urea Nitrogen) 10 mg/dL (7.0-18.7); Calc. Creatinine Clearance 48 mL/min (70-130); Calcium 7.8 mg/dL (7.8-10.44); Carbon Dioxide Less than 8 mmol/L (22-29); Chloride 119 mmol/L (98-107); Estimated GFR 72; Glucose 223 mg/dL (70-105); Magnesium 1.7 mg/dL (1.6-2.6); Potassium 3.1 mmol/L (3.5-5.1); Sodium 141 mmol/L (136-145)
[2024-03-28] MEDS: D5 1/2 NS w/20 mEq KCL 1,000 ML IV PRN (08:20)
[2024-03-28] MEDS: Pantoprazole 40 MG VIAL IVP SCH (09:37)
[2024-03-28] MEDS: Enoxaparin 30 MG (0.3 mL) SYRINGE SC SCH (09:37)
[2024-03-28] MEDS: PHOS-NAK 1 PKT PACK PO SCH (09:38)
[2024-03-28] MEDS: Potassium Chloride 20 MEQ TAB PO SCH ×2 (09:56→21:51)
[2024-03-28] MEDS: Magnesium 2 GM/50 ML(in water) 2 GM in Premix 1 BAG IVPB SCH (09:56)
[2024-03-28 11:32] LABS: Phosphorus 1.7 mg/dL (2.3-4.7)
[2024-03-28 11:36] LABS: Anion Gap 14 mmol/L (10-20); BUN (Urea Nitrogen) 8 mg/dL (7.0-18.7); Calc. Creatinine Clearance 48 mL/min (70-130); Calcium 7.5 mg/dL (7.8-10.44); Carbon Dioxide 9 mmol/L (22-29); Chloride 119 mmol/L (98-107); Estimated GFR 72; Glucose 280 mg/dL (70-105); Magnesium 2.2 mg/dL (1.6-2.6); Potassium 3.6 mmol/L (3.5-5.1); Sodium 138 mmol/L (136-145)
[2024-03-28] MEDS: Potassium Phosphate 30 MMOL in Sodium Chloride 0.9% 250 ML 250 ML IVPB SCH ×2 (14:14→14:20)
[2024-03-28] MEDS: Insulin Reg, Human 100 UNITS in Sodium Chloride 0.9% 100 ML IVPB SCH (17:00)
[2024-03-28 21:14] LABS: Anion Gap 8 mmol/L (10-20); BUN (Urea Nitrogen) 5 mg/dL (7.0-18.7); Calc. Creatinine Clearance 59 mL/min (70-130); Calcium 7.4 mg/dL (7.8-10.44); Carbon Dioxide 14 mmol/L (22-29); Chloride 117 mmol/L (98-107); Estimated GFR 92; Glucose 238 mg/dL (70-105); Potassium 2.9 mmol/L (3.5-5.1); Sodium 136 mmol/L (136-145)
[2024-03-28] MEDS: Dextrose 50% Abboject 50 ML SYRINGE SLOW IVP PRN (21:25)
[2024-03-29 01:13] LABS: Anion Gap 11 mmol/L (10-20); BUN (Urea Nitrogen) 4 mg/dL (7.0-18.7); Calc. Creatinine Clearance 65 mL/min (70-130); Calcium 7.8 mg/dL (7.8-10.44); Carbon Dioxide 13 mmol/L (22-29); Chloride 116 mmol/L (98-107); Estimated GFR 104; Glucose 243 mg/dL (70-105); Potassium 3.5 mmol/L (3.5-5.1); Sodium 136 mmol/L (136-145)
[2024-03-29] MEDS: Ondansetron PF 4 MG/2 ML Vial IVP PRN (03:39)
[2024-03-29 04:24] LABS: #Basophils Less than 0.03 10x3/uL (0.0-0.2); #Eosinphils Less than 0.03 10x3/uL (0.0-0.7); %Basophils 0.4 % (0.0-1.0); %Eosinophils 0.2 % (0.0-10.0); %Lymphocytes 17.9 % (21.0-51.0); %Monocytes 11.1 % (0.0-10.0); %Neutrophils 69.8 % (42.0-75.0); Hematocrit 25.6 % (36.0-47.0); Hemoglobin 8.2 g/dL (12.0-16.0); Mean Corpuscular Hemoglobin 25.7 pg (27.0-31.0); Mean Corpuscular Volume 80.3 fL (78.0-98.0); Mean Platelet Volume 9.8 fL (7.4-10.4); Platelet Count 207 10x3/uL (130-400); Red Blood Cell (RBC) Count 3.19 mill/uL (4.20-5.40)
[2024-03-29 04:36] LABS: Anion Gap 9 mmol/L (10-20); BUN (Urea Nitrogen) 4 mg/dL (7.0-18.7); Calc. Creatinine Clearance 66 mL/min (70-130); Calcium 7.9 mg/dL (7.8-10.44); Carbon Dioxide 14 mmol/L (22-29); Chloride 116 mmol/L (98-107); Estimated GFR 106; Glucose 235 mg/dL (70-105); Magnesium 1.6 mg/dL (1.6-2.6); Phosphorus 1.8 mg/dL (2.3-4.7); Potassium 3.2 mmol/L (3.5-5.1); Sodium 136 mmol/L (136-145)
[2024-03-29] MEDS: Magnesium 2 GM/50 ML(in water) 2 GM in Premix 1 BAG IVPB SCH (06:01)
[2024-03-29] MEDS: PHOS-NAK 1 PKT PACK PO SCH (06:02)
[2024-03-29] MEDS: Potassium Chloride 20 MEQ TAB PO SCH ×2 (06:02→12:52)
[2024-03-29 07:48] LABS: Anion Gap 12 mmol/L (10-20); BUN (Urea Nitrogen) Less than 4 mg/dL (7.0-18.7); Calc. Creatinine Clearance 79 mL/min (70-130); Carbon Dioxide 15 mmol/L (22-29); Chloride 115 mmol/L (98-107); Estimated GFR 113; Glucose 241 mg/dL (70-105); Potassium 4.6 mmol/L (3.5-5.1); Sodium 137 mmol/L (136-145)
[2024-03-29 09:46] VITALS: BMI 17.9
[2024-03-29 11:55] LABS: Anion Gap 9 mmol/L (10-20); BUN (Urea Nitrogen) Less than 4 mg/dL (7.0-18.7); Calc. Creatinine Clearance 81 mL/min (70-130); Calcium 7.7 mg/dL (7.8-10.44); Carbon Dioxide 17 mmol/L (22-29); Chloride 115 mmol/L (98-107); Estimated GFR 113; Glucose 182 mg/dL (70-105); Potassium 3.4 mmol/L (3.5-5.1); Sodium 138 mmol/L (136-145)
[2024-03-29] MEDS: Sodium Chloride 0.9% 1,000 ML IV SCH (12:52)
[2024-03-29] MEDS: Insulin Glargine 30 UNITS/0.3 ML VIAL SC SCH (12:52)
[2024-03-29] MEDS: HumaLOG 300 UNITS/3 ML VIAL SC PRN (17:51)
[2024-03-30 05:59] LABS: #Basophils Less than 0.03 10x3/uL (0.0-0.2); #Eosinphils Less than 0.03 10x3/uL (0.0-0.7); %Basophils 0.6 % (0.0-1.0); %Eosinophils 0.6 % (0.0-10.0); %Lymphocytes 35.5 % (21.0-51.0); %Monocytes 13.4 % (0.0-10.0); %Neutrophils 49.3 % (42.0-75.0); Hematocrit 26.9 % (36.0-47.0); Hemoglobin 8.6 g/dL (12.0-16.0); Mean Corpuscular Hemoglobin 25.1 pg (27.0-31.0); Mean Corpuscular Volume 78.4 fL (78.0-98.0); Platelet Count 204 10x3/uL (130-400); RBC Distribution Width 17.5 % (11.5-14.5); Red Blood Cell (RBC) Count 3.43 mill/uL (4.20-5.40)
[2024-03-30 06:24] LABS: Anion Gap 12 mmol/L (10-20); BUN (Urea Nitrogen) 5 mg/dL (7.0-18.7); Calc. Creatinine Clearance 76 mL/min (70-130); Calcium 8.1 mg/dL (7.8-10.44); Carbon Dioxide 22 mmol/L (22-29); Chloride 108 mmol/L (98-107); Estimated GFR 112; Glucose 354 mg/dL (70-105); Magnesium 1.8 mg/dL (1.6-2.6); Sodium 138 mmol/L (136-145)
[2024-03-30 06:32] LABS: Phosphorus 3.2 mg/dL (2.3-4.7)
[2024-03-30] MEDS: Magnesium 2 GM/50 ML(in water) 2 GM in Premix 1 BAG IVPB SCH (08:50)
[2024-03-30] MEDS: Pantoprazole DR 40 MG TAB PO SCH (08:50)
[2024-03-30] MEDS: Insulin Glargine 30 UNITS/0.3 ML VIAL SC SCH (08:50)
[2024-03-30] MEDS ORDERED: Insulin Glargine 30 UNITS/0.3 ML VIAL SC SCH (09:00)
[2024-03-30] MEDS: HumuLIN 70/30 (300 UNITS/3 ML VIAL) SC SCH (21:15)
[2024-03-30] MEDS: HumuLIN 70/30 100 Unit/ml 10 ml Vial SC SCH (21:41)
[2024-03-31 05:44] LABS: #Basophils Less than 0.03 10x3/uL (0.0-0.2); #Eosinphils Less than 0.03 10x3/uL (0.0-0.7); %Basophils 0.6 % (0.0-1.0); %Eosinophils 0.6 % (0.0-10.0); %Lymphocytes 39.6 % (21.0-51.0); %Monocytes 14.1 % (0.0-10.0); %Neutrophils 44.5 % (42.0-75.0); Hematocrit 27.3 % (36.0-47.0); Hemoglobin 8.7 g/dL (12.0-16.0); Mean Corpuscular HGB CONC 31.9 g/dL (32.0-36.0); Mean Corpuscular Hemoglobin 25.2 pg (27.0-31.0); Mean Corpuscular Volume 79.1 fL (78.0-98.0); Mean Platelet Volume 10.1 fL (7.4-10.4); Platelet Count 213 10x3/uL (130-400); RBC Distribution Width 17.3 % (11.5-14.5); Red Blood Cell (RBC) Count 3.45 mill/uL (4.20-5.40)
[2024-03-31 06:09] LABS: Anion Gap 11 mmol/L (10-20); BUN (Urea Nitrogen) 7 mg/dL (7.0-18.7); Calc. Creatinine Clearance 102 mL/min (70-130); Calcium 8.3 mg/dL (7.8-10.44); Carbon Dioxide 27 mmol/L (22-29); Chloride 107 mmol/L (98-107); Estimated GFR 120; Glucose 186 mg/dL (70-105); Magnesium 1.8 mg/dL (1.6-2.6); Potassium 3.5 mmol/L (3.5-5.1); Sodium 141 mmol/L (136-145)
[2024-03-31 07:34] VITALS: BP 93/55; TEMP 98
[2024-03-31] MEDS: Potassium Chloride 20 MEQ TAB PO SCH (08:27)
[2024-03-31] MEDS: Magnesium 2 GM/50 ML(in water) 2 GM in Premix 1 BAG IVPB SCH (08:31)
== END 2024-03-31 11:30 | disposition home or self-care (01) | DRG 637 ==
LOC: ERS 02:07 → CCU 03:56 → SURG A 03-29 15:49
PROVIDERS: ADMIT Internal Medicine; ATTEND Internal Medicine
DX: E10.10 Type 1 diabetes mellitus with ketoacidosis without coma (principal); G93.41 Metabolic encephalopathy; N17.9 Acute kidney failure, unspecified; E78.00 Pure hypercholesterolemia, unspecified; Z79.4 Long term (current) use of insulin; Z98.42 Cataract extraction status, left eye; Z79.899 Other long term (current) drug therapy; D64.9 Anemia, unspecified; D72.829 Elevated white blood cell count, unspecified; E83.39 Other disorders of phosphorus metabolism; Z90.49 Acquired absence of other specified parts of digestive tract; Z98.41 Cataract extraction status, right eye
CPT/HCPCS: 36415; 36416; 71045; 80048; 80053; 81001; 82010; 82805; 83690; 83735; 83880; 84100; 84484; 84703; 85025; 87040; 93005; C9113; J1650; J1815; J2405; J3475; J3480; J3490; J7030; J7050; J7999